=== PATIENT | male | born 1950 | race Caucasian/White ===

== ENCOUNTER 2016-07-14 22:40 | Emergency (ER) | payer MEDICARE, OTHER ==
[2016-07-14] MEDS ORDERED: HYDROmorphone 2 MG/ML Syringe IM ONE (23:56)
[2016-07-14] MEDS ORDERED: methylPREDNISolone Sodium Succinate 125 MG/2 ML SDV IM ONE (23:56)
--- NOTE | 2016-07-15 00:02 | EDM.PDOC ---
ED HPI GENERAL MEDICAL PROBLEM - General Chief Complaint: Back Pain or Injury Stated Complaint: BACK PAIN Time Seen by Provider: 07/14/16 23:53 - History of Present Illness INITIAL COMMENTS - FREE TEXT/NARRATIVE: HISTORY AND PHYSICAL: History of present illness: The patient is a 66 y/o male with a history of multiple back surgeries who has had recurrence of his lumbar back pain and has been followed by his back surgeons in [place]. As a result of the return of the pain he has been flying there to get steroid injections due to a bulging disc diagnosed on MRI at [facility]. According to the patient he always has lower back pain which radiates to bilateral legs to the level of the knee but he has no bowel or bladder disturbances and no neurosensory changes or weakness of the legs. He denies any recent trauma or new activities that could have aggravated it. He says this been ongoing for the last few weeks and his last steroid injection was 8 days ago and he is scheduled for another one in 2 days in [place]. He currently takes diclofenac Neurontin and [place] 10/325 for pain and that is not been working as it has intensified over the last 3 days. He has not had any oral steroids. The patient states there is nothing new or different about his pain and that is exactly as he always gets it and he has no new bowel or bladder issues. He says he has no neurologic changes and he is really only here to help manage the pain better until he can get to [place] on Saturday. He has no systemic complaints of fever chills chest pain shortness of breath abdominal pain. Review of systems: As per history of present illness and below otherwise all systems reviewed and negative. Past medical history: As per history of present illness and as reviewed below otherwise noncontributory. Surgical history: As per history of present illness and as reviewed below otherwise noncontributory. Social history: No reported history of drug or alcohol abuse. Family history: As per history of present illness and as reviewed below otherwise noncontributory. Physical exam: General: Well-developed well-nourished overweight male who is nontoxic and ambulated into the ED without assistance. Vital signs of a noted by me. HEENT: Atraumatic, normocephalic,, negative for conjunctival pallor or scleral icterus, mucous membranes moist, throat clear, neck supple, nontender, trachea midline. Lungs: Clear to auscultation, breath sounds equal bilaterally, chest nontender. Heart: S1S2, regular, negative for clicks, rubs, or JVD. Abdomen: Soft, nondistended, nontender. NABS Pelvis: Stable nontender. Genitourinary: Deferred. Rectal: Deferred. Extremities: Atraumatic, full range of motion without defects or deficits negative for cords or calf pain. Neurovascular unremarkable. Neuro: Awake, alert, oriented. Cranial nerves II through XII unremarkable. Cerebellum unremarkable. Motor and sensory unremarkable throughout. Exam nonfocal. Dorsi and plantar flexion is intact bilaterally 5/5 inclusive of the great toe and in inversion and eversion of the feet is intact. Patient has good strength throughout the lower extremities and patellar reflexes are +2 bilaterally Back: There are multiple old scars seen there are no bony defects in the midline no soft tissue injuries and no reproducible pain on palpation Diagnostics: [] Therapeutics: Solu-Medrol Dilaudid I told the patient that I would be very limited here and that he did not need to get a repeat MRI emergently and he agrees. We will give him Dilaudid and Solu -Medrol IM and I'll send him home with Percocet and prednisone to try on Saturday. He is comfortable with this care plan and is aware of my concerns and reasons to return and states acceptance of them. Impression: Lumbar back/disc pain history of same acute on chronic Definitive disposition and diagnosis as appropriate pending reevaluation and review of above. bilateral lower back Pain Score (Numeric/FACES): 10 - Related Data Allergies Allergy/AdvReac Type Severity Reaction Status Date / Time No Known Allergies Allergy Verified 07/14/16 23:01 Home Meds: Home Meds DULoxetine [Cymbalta] 1 tab PO DAILY 11/09/13 [History] Metoprolol Succinate 0.5 tab PO BEDTIME 11/09/13 [History] Multivitamin [Multi-Vitamin Daily] 1 tab PO DAILY 11/09/13 [History] Omeprazole [Prilosec] 2 tab PO BRK 11/09/13 [History] Simvastatin [Zocor] 40 mg PO BEDTIME 11/09/13 [History] Triamterene/Hydrochlorothiazid [Triamterene-HCTZ 37.5-25 MG] 1 tab PO DAILY 08/ 11/14 [History] Aspirin 81 mg PO DAILY 09/30/14 [History] Diclofenac Potassium [Zipsor] 50 mg PO BID 05/17/16 [History] Flunisolide [Aerospan] 2 spray NASBOTH DAILY 05/17/16 [History] Gabapentin [Neurontin] 1,600 mg PO ASDIRECTED 05/17/16 [History] Hydrocodone/Acetaminophen [Hydrocodon-Acetaminophn 10-325] 1 tab PO DAILY PRN [History] Past Medical History HEENT History: Reports: Hard of hearing Other HEENT History: wears glasses, keith hearing aids Cardiovascular History: Reports: High cholesterol, Hypertension Respiratory History: Reports: Sleep apnea Other Respiratory History: uses CPAP Gastrointestinal History: Reports: GERD Musculoskeletal History: Reports: Back pain, chronic, Osteoarthritis Psychiatric History: Reports: Depression Endocrine/Metabolic History: Reports: Hypothyroidism, Obesity/BMI 30+ Hematologic History: Reports: Blood transfusion(s) Other Hematologic History: states had blood transfusion with one of his back surgeries - Infectious Disease History Infectious Disease History: Reports: Chicken pox, Measles, MRSA, Mumps - Past Surgical History Head Surgeries/Procedures: Reports: None GI Surgical History: Reports: Colonoscopy Neurological Surgical History: Reports: Lumbar spine Other Neurological Surgeries/Procedures: back surgery x3, total of 8 back surgeries Musculoskeletal Surgical History: Reports: Hip replacement, Knee replacement, Shoulder replacement, Shoulder surgery Other Musculoskeletal Surgeries/Procedures:: hx of keith knee replacement and hip replacement with revision, foot surgery Social & Family History - Family History Family Medical History: Noncontributory - Tobacco Use Smoking Status *Q: Former Smoker Years of Tobacco use: 7 Used Tobacco, but Quit: Yes Month Tobacco Last Used: 20years - Alcohol Use Days Per Week of Alcohol Use: 0 Number of Drinks Per Day: 0 Total Drinks Per Week: 0 - Recreational Drug Use Recreational Drug Use: No Drug Use in Last 12 Months: No ED ROS GENERAL - Review of Systems Review Of Systems: ROS reveals no pertinent complaints other than HPI. ED EXAM, GENERAL - Physical Exam Exam: See Below (See dictation) Course - Vital Signs Last Recorded V/S: Last Vital Signs Temp 36.7 C 07/14/16 23:06 Pulse 68 07/14/16 23:06 Resp 18 07/14/16 23:06 BP 184/87 H 07/14/16 23:06 Pulse Ox 94 L 07/14/16 23:06 - Orders/Labs/Meds Orders: Active Orders 24 hr Category Date Time Status HYDROmorphone [Dilaudid] Med 07/14/16 23:56 Once 2 mg IM ONETIME ONE methylPREDNISolone Sod Succ [Solu-MEDROL] Med 07/14/16 23:56 Once 125 mg IM ONETIME ONE Medication Orders Hydromorphone HCl (Dilaudid) 2 mg IM ONETIME ONE Stop: 07/14/16 23:57 Methylprednisolone Sodium Succinate (Solu-Medrol) 125 mg IM ONETIME ONE Stop: 07/14/16 23:57 Meds: Medications Generic Name Dose Route Start Last Admin Trade Name Freq PRN Reason Stop Dose Admin Hydromorphone HCl 2 mg 07/14/16 23:56 Dilaudid IM 07/14/16 23:57 ONETIME ONE Methylprednisolone Sodium Succinate 125 mg 07/14/16 23:56 Solu-Medrol IM 07/14/16 23:57 ONETIME ONE Departure - Departure Time of Disposition: 00:01 Disposition: Home, Self-Care 01 Condition: good Clinical Impression: Disc herniation Qualifiers: Spinal region: lumbosacral Qualified Code(s): M51.27 - Other intervertebral disc displacement, lumbosacral region Lumbar back pain Qualifiers: Chronicity: chronic Back pain laterality: bilateral Sciatica presence: without sciatica Qualified Code(s): M54.5 - Low back pain; G89.29 - Other chronic pain Forms: ED Department Discharge Additional Instructions: The following information is given to patients seen in the emergency department who are being discharged to home. This information is to outline your options for follow-up care. We provide all patients seen in our emergency department with a follow-up referral. The need for follow-up, as well as the timing and circumstances, are variable depending upon the specifics of your emergency department visit. If you don't have a primary care physician on staff, we will provide you with a referral. We always advise you to contact your personal physician following an emergency department visit to inform them of the circumstance of the visit and for follow-up with them and/or the need for any referrals to a consulting specialist. The emergency department will also refer you to a specialist when appropriate. This referral assures that you have the opportunity for followup care with a specialist. All of these measure are taken in an effort to provide you with optimal care, which includes your followup. Under all circumstances we always encourage you to contact your private physician who remains a resource for coordinating your care. When calling for followup care, please make the office aware that this follow-up is from your recent emergency room visit. If for any reason you are refused follow-up, please contact the [facility] emergency department at and ask to speak to the emergency department charge nurse [facility] Primary care- [place] [address] Please use medications as prescribed from [facility]--Percocet and prednisone. Please keep your appointment with your back specialist on Saturday and return to ER as needed and as we discussed. Please also follow up with your primary care in the clinic when you're able. - My Orders Last 24 Hours: My Active Orders 07/14/16 23:56 HYDROmorphone [Dilaudid] 2 mg IM ONETIME ONE methylPREDNISolone Sod Succ [Solu-MEDROL] 125 mg IM ONETIME ONE - Assessment/Plan Last 24 Hours: My Active Orders 07/14/16 23:56 HYDROmorphone [Dilaudid] 2 mg IM ONETIME ONE methylPREDNISolone Sod Succ [Solu-MEDROL] 125 mg IM ONETIME ONE
[2016-07-15 00:39] VITALS: BP 165/86
== END 2016-07-15 00:15 | disposition home or self-care (01) ==
LOC: MW.ED 22:40
DX: M51.27 Other intervertebral disc displacement, lumbosacral region (principal); E78.00 Pure hypercholesterolemia, unspecified; I10 Essential (primary) hypertension; K21.9 Gastro-esophageal reflux disease without esophagitis; M19.90 Unspecified osteoarthritis, unspecified site; E03.9 Hypothyroidism, unspecified; E66.9 Obesity, unspecified; F32.9 Major depressive disorder, single episode, unspecified; Z79.82 Long term (current) use of aspirin; Z79.899 Other long term (current) drug therapy; Z87.891 Personal history of nicotine dependence
CPT/HCPCS: 96372; 99283; J1170; J2930; 99284

== ENCOUNTER 2016-07-24 09:08 | Emergency (ER) | payer MEDICARE, OTHER ==
[2016-07-24] MEDS ORDERED: Sodium Chloride 0.9% 1,000 ML IV ONE (10:01)
[2016-07-24] MEDS ORDERED: fentaNYL 100 MCG/2 ML SDV IVPUSH ONE (10:11)
--- NOTE | 2016-07-24 10:53 | EDM.PDOC ---
ED HPI GENERAL MEDICAL PROBLEM - General Chief Complaint: Back Pain or Injury Stated Complaint: BACK PAIN Time Seen by Provider: 07/24/16 09:51 - History of Present Illness INITIAL COMMENTS - FREE TEXT/NARRATIVE: HISTORY AND PHYSICAL: History of present illness: Patient is a 66-year-old white male history chronic back pain and concern of worsening low back pain with difficulty ambulating he also had urinary incontinence today he denies urinary retention he is brought by ambulance and received intramuscular narcotics and refers pain he is followed [id number] [place] and request transfer there if possible. Review of systems: As per history of present illness and below otherwise all systems reviewed and negative. Past medical history: As per history of present illness and as reviewed below otherwise noncontributory. Surgical history: As per history of present illness and as reviewed below otherwise noncontributory. Social history: No reported history of drug or alcohol abuse. Family history: As per history of present illness and as reviewed below otherwise noncontributory. Physical exam: HEENT: Atraumatic, normocephalic, pupils reactive, negative for conjunctival pallor or scleral icterus, mucous membranes moist, throat clear, neck supple, nontender, trachea midline. Lungs: Clear to auscultation, breath sounds equal bilaterally, chest nontender. Heart: S1S2, regular, negative for clicks, rubs, or JVD. Abdomen: Soft, nondistended, nontender. Negative for masses or hepatosplenomegaly. Negative for costovertebral tenderness. Pelvis: Stable nontender. Genitourinary: Deferred. Rectal: Normal tone normal sensation Extremities: Atraumatic, negative for cords or calf pain. Neurovascular unremarkable. Neuro: Awake, alert, oriented. Cranial nerves II through XII unremarkable. Cerebellum unremarkable. Motor and sensory unremarkable throughout. Exam nonfocal. Diagnostics: None Therapeutics: Saline lock fentanyl 100 mcg IV Impression: #1 chronic back pain with acute exacerbation #2 urinary incontinence etiology to be determined Definitive disposition and diagnosis as appropriate pending reevaluation and review of above. Lower Back Pain Score (Numeric/FACES): 7 - Related Data Allergies Allergy/AdvReac Type Severity Reaction Status Date / Time No Known Allergies Allergy Verified 07/14/16 23:01 Home Meds: Home Meds DULoxetine [Cymbalta] 60 mg PO DAILY 11/09/13 [History] Metoprolol Succinate 100 mg PO BEDTIME 11/09/13 [History] Multivitamin [Multi-Vitamin Daily] 1 tab PO DAILY 11/09/13 [History] Omeprazole [Prilosec] 40 mg PO BRK 11/09/13 [History] Simvastatin [Zocor] 20 mg PO BEDTIME 11/09/13 [History] Triamterene/Hydrochlorothiazid [Triamterene-HCTZ 37.5-25 MG] 0.5 tab PO DAILY [History] Aspirin 81 mg PO DAILY 09/30/14 [History] Diclofenac Potassium [Zipsor] 100 mg PO BID 05/17/16 [History] Flunisolide [Aerospan] 2 spray NASBOTH DAILY 05/17/16 [History] Gabapentin [Neurontin] 400 mg PO DAILY 05/17/16 [History] Hydrocodone/Acetaminophen [Hydrocodon-Acetaminophn 10-325] 1 tab PO Q6HR PRN [History] Past Medical History HEENT History: Reports: Hard of hearing Other HEENT History: wears glasses, keith hearing aids Cardiovascular History: Reports: High cholesterol, Hypertension Respiratory History: Reports: Sleep apnea Other Respiratory History: uses CPAP Gastrointestinal History: Reports: GERD Musculoskeletal History: Reports: Back pain, chronic, Osteoarthritis Psychiatric History: Reports: Depression Endocrine/Metabolic History: Reports: Hypothyroidism, Obesity/BMI 30+ Hematologic History: Reports: Blood transfusion(s) Other Hematologic History: states had blood transfusion with one of his back surgeries - Infectious Disease History Infectious Disease History: Reports: Chicken pox, Measles, MRSA, Mumps - Past Surgical History Head Surgeries/Procedures: Reports: None GI Surgical History: Reports: Colonoscopy Neurological Surgical History: Reports: Lumbar spine Other Neurological Surgeries/Procedures: back surgery x3, total of 8 back surgeries Musculoskeletal Surgical History: Reports: Hip replacement, Knee replacement, Shoulder replacement, Shoulder surgery Other Musculoskeletal Surgeries/Procedures:: hx of keith knee replacement and hip replacement with revision, foot surgery Social & Family History - Family History Family Medical History: Noncontributory - Tobacco Use Smoking Status *Q: Never Smoker Years of Tobacco use: 7 Used Tobacco, but Quit: Yes Month Tobacco Last Used: 20years Second Hand Smoke Exposure: No - Caffeine Use Caffeine Use: Reports: Coffee, Soda - Alcohol Use Days Per Week of Alcohol Use: 0 Number of Drinks Per Day: 0 Total Drinks Per Week: 0 - Recreational Drug Use Recreational Drug Use: No Drug Use in Last 12 Months: No ED ROS GENERAL - Review of Systems Review Of Systems: ROS reveals no pertinent complaints other than HPI. ED EXAM, GENERAL - Physical Exam Exam: See Below (The dictation) Course - Vital Signs Text/Narrative:: I discussed case with the family at length and concerns including ruling out cord compression they understand and agree they request transfer to [facility] in [place] where they have seen a spine surgeon prior I did discuss case with him and with ER physician was graciously agreed to accept the patient he will be flown by [place]. Last Recorded V/S: Last Vital Signs Temp 36.6 C 07/24/16 09:16 Pulse 72 07/24/16 10:02 Resp 24 H 07/24/16 10:02 BP 170/83 H 07/24/16 10:02 Pulse Ox 96 07/24/16 10:02 - Orders/Labs/Meds Orders: Active Orders 24 hr Category Date Time Status Sodium Chloride 0.9% [Normal Saline] 1,000 ml Med 07/24/16 10:01 Active IV .Bolus Medication Orders Sodium Chloride (Normal Saline) 1,000 mls @ 70 mls/hr IV .Bolus ONE Stop: 07/25/16 00:18 Last Admin: 07/24/16 10:02 Dose: 70 mls/hr Meds: Medications Generic Name Dose Route Start Last Admin Trade Name Freq PRN Reason Stop Dose Admin Sodium Chloride 1,000 mls @ 70 mls/hr 07/24/16 10:01 07/24/16 10:02 Normal Saline IV 07/25/16 00:18 70 mls/hr .Bolus ONE Administration Discontinued Medications Generic Name Dose Route Start Last Admin Trade Name Freq PRN Reason Stop Dose Admin Fentanyl 100 mcg 07/24/16 10:11 07/24/16 10:19 Sublimaze IVPUSH 07/24/16 10:12 100 mcg ONETIME ONE Administration Departure - Departure Time of Disposition: 10:48 Disposition: DC/Tfer to Acute Hospital 02 Condition: good Clinical Impression: Back pain, Urinary incontinence Forms: ED Department Discharge - My Orders Last 24 Hours: My Active Orders 07/24/16 10:01 Sodium Chloride 0.9% [Normal Saline] 1,000 ml IV .Bolus - Assessment/Plan Last 24 Hours: My Active Orders 07/24/16 10:01 Sodium Chloride 0.9% [Normal Saline] 1,000 ml IV .Bolus
[2016-07-24 10:58] VITALS: BP 150/73
== END 2016-07-24 11:25 ==
LOC: MW.ED 09:08
DX: M54.9 Dorsalgia, unspecified (principal); R32 Unspecified urinary incontinence; I10 Essential (primary) hypertension; E78.00 Pure hypercholesterolemia, unspecified; K21.9 Gastro-esophageal reflux disease without esophagitis; F32.9 Major depressive disorder, single episode, unspecified; E03.9 Hypothyroidism, unspecified; E66.9 Obesity, unspecified; Z68.41 Body mass index [BMI] 40.0-44.9, adult; Z96.659 Presence of unspecified artificial knee joint; Z96.649 Presence of unspecified artificial hip joint; Z96.619 Presence of unspecified artificial shoulder joint; Z98.890 Other specified postprocedural states; Z79.82 Long term (current) use of aspirin; Z79.899 Other long term (current) drug therapy
CPT/HCPCS: 96361; 96374; 99284; J3010; J7040; 99285

== ENCOUNTER 2016-09-23 10:42 | Inpatient (IN) | payer MEDICARE, OTHER ==
[2016-09-23] MEDS ORDERED: Sodium Chloride 0.9% 2.5 ML Syringe FLUSH PRN (10:50)
[2016-09-23] MEDS ORDERED: Sodium Chloride 0.9% 10 ML Syringe FLUSH PRN (10:50)
--- NOTE | 2016-09-23 10:57 | EDM.PDOC ---
ED HPI GENERAL MEDICAL PROBLEM - General Chief Complaint: Chest Pain Stated Complaint: SHORTNESS OF BREATH Time Seen by Provider: 09/23/16 10:45 Source of Information: Reports: Patient History Limitations: Reports: No Limitations - History of Present Illness INITIAL COMMENTS - FREE TEXT/NARRATIVE: HISTORY AND PHYSICAL: History of present illness: Patient comes to the emergency room via EMS. He complains of pain over his right anterior lower rib. Onset was 3 AM this morning waking him up out of his sleep. He took 1 tablet of OxyContin, the pain resolved and patient slept until 7 AM. He got up at 7 AM, got himself dressed and then developed worsening pain to his right lower chest and shortness of breath. Pain increases with taking a deep breath. He states that it feels like pleurisy which he's suffered from 30 years ago. He does not have difficulty taking a breath but it is painful when he takes a deep breath. Denies fever and chills. No pain anywhere else in his chest neck or shoulders. No radiation of pain from R rib area. No recent fever or chills. He is 6 weeks post L5-S1 fusion. He has overall been feeling well recently. No history of cholecystectomy[] Review of systems: As per history of present illness and below otherwise all systems reviewed and negative. Past medical history: As per history of present illness and as reviewed below otherwise noncontributory. Surgical history: As per history of present illness and as reviewed below otherwise noncontributory. Social history: No reported history of drug or alcohol abuse. Family history: As per history of present illness and as reviewed below otherwise noncontributory. Physical exam: Gen.: Well-developed well-nourished male appears in no acute distress. HEENT: Atraumatic, normocephalic Oral mucous membranes moist. neck supple, nontender. Trachea midline. Lungs: Clear to auscultation, breath sounds equal bilaterally, chest nontender. Nonlabored respirations. Heart: S1S2, regular rate and rhythm. Abdomen: Obese Soft, nondistended, nontender. No masses guarding or rebound. Pelvis: Stable nontender. Genitourinary: Deferred. Rectal: Deferred. Extremities: Atraumatic, negative for cords or calf pain. Neurovascular unremarkable. Neuro: Awake, alert, oriented. Cerebellum unremarkable. Motor and sensory unremarkable throughout. Exam nonfocal. Is pleasant and conversational. Diagnostics: [CBC, CMP, chest x-ray, EKG, troponin, amylase, lipase, d-dimer, abdominal ultrasound, CTA chest] Therapeutics: [Toradol 30 mg IV, aspirin 324 mg, Lovenox 130 mg subcutaneous] Impression: [Pulmonary emboli] Plan: [D-dimer is 4.41. CTA chest shows large PE in the right lung, small PE to left lower lung lobe. CTA and lab findings are reviewed with Dr. Leonel Walton who Agrees to accept patient for inpatient admission with telemetry. This is discussed with patient he is in agreement with today's plan. Definitive disposition and diagnosis as appropriate pending reevaluation and review of above. right rib Pain Score (Numeric/FACES): 7 - Related Data Allergies Allergy/AdvReac Type Severity Reaction Status Date / Time No Known Allergies Allergy Verified 09/23/16 10:59 Home Meds: Home Meds DULoxetine [Cymbalta] 60 mg PO DAILY 11/09/13 [History] Metoprolol Succinate 100 mg PO BEDTIME 11/09/13 [History] Multivitamin [Multi-Vitamin Daily] 1 tab PO DAILY 11/09/13 [History] Omeprazole [Prilosec] 40 mg PO BRK 11/09/13 [History] Simvastatin [Zocor] 20 mg PO BEDTIME 11/09/13 [History] Triamterene/Hydrochlorothiazid [Triamterene-HCTZ 37.5-25 MG] 0.5 tab PO DAILY [History] Aspirin 81 mg PO DAILY 09/30/14 [History] Flunisolide [Aerospan] 2 spray NASBOTH DAILY 05/17/16 [History] Gabapentin [Neurontin] 400 mg PO DAILY 05/17/16 [History] Hydrocodone/Acetaminophen [Hydrocodon-Acetaminophn 10-325] 1 tab PO Q6HR PRN [History] oxyCODONE 10 mg PO ONETIME 09/23/16 [History] Past Medical History HEENT History: Reports: Hard of Hearing Other HEENT History: wears glasses, keith hearing aids Cardiovascular History: Reports: High Cholesterol, Hypertension Respiratory History: Reports: Sleep Apnea Other Respiratory History: uses CPAP Gastrointestinal History: Reports: GERD Musculoskeletal History: Reports: Back Pain, Chronic, Osteoarthritis Psychiatric History: Reports: Depression Endocrine/Metabolic History: Reports: Hypothyroidism, Obesity/BMI 30+ Hematologic History: Reports: Blood Transfusion(s) Other Hematologic History: states had blood transfusion with one of his back surgeries - Infectious Disease History Infectious Disease History: Reports: Chicken Pox, Measles, MRSA, Mumps - Past Surgical History Neurological Surgical History: Reports: Lumbar Spine Musculoskeletal Surgical History: Reports: Hip Replacement, Knee Replacement, Shoulder Replacement, Shoulder Surgery Social & Family History - Family History Family Medical History: Noncontributory - Tobacco Use Smoking Status *Q: Never Smoker Years of Tobacco use: 7 Used Tobacco, but Quit: Yes Month Tobacco Last Used: 20years Second Hand Smoke Exposure: No - Caffeine Use Caffeine Use: Reports: Coffee, Soda - Alcohol Use Days Per Week of Alcohol Use: 0 Number of Drinks Per Day: 0 Total Drinks Per Week: 0 - Recreational Drug Use Recreational Drug Use: No Drug Use in Last 12 Months: No ED ROS GENERAL - Review of Systems Review Of Systems: ROS reveals no pertinent complaints other than HPI. ED EXAM, GENERAL - Physical Exam Exam: See Below Course - Vital Signs Text/Narrative:: Rates pain at 7 out of 10 upon presentation to the ER declines any medication for pain. 1120 patient states the pain is increasing, Toradol was ordered. Last Recorded V/S: Last Vital Signs Temp 97.5 F 09/23/16 10:59 Pulse 79 09/23/16 13:39 Resp 18 09/23/16 12:25 BP 120/59 L 09/23/16 13:39 Pulse Ox 97 09/23/16 13:39 - Orders/Labs/Meds Orders: Active Orders 24 hr Category Date Time Status Patient Status [ADT] Stat ADT 09/23/16 13:50 Active EKG Documentation Completion [RC] STAT Care 09/23/16 10:50 Active Abdomen Ltd [US] Stat Exams 09/23/16 10:59 Taken CTA Chest W WO Contrast [Ang Chest] [CT] Stat Exams 09/23/16 12:22 Taken Chest 2V [CR] Stat Exams 09/23/16 10:51 Taken Sodium Chloride 0.9% [Saline Flush] Med 09/23/16 10:50 Active 10 ml FLUSH ASDIRECTED PRN Sodium Chloride 0.9% [Saline Flush] Med 09/23/16 10:50 Active 2.5 ml FLUSH ASDIRECTED PRN Saline Lock Insert [OM.PC] Stat Oth 09/23/16 10:50 Ordered Medication Orders Sodium Chloride (Saline Flush) 10 ml FLUSH ASDIRECTED PRN PRN Reason: Keep Vein Open Last Admin: 09/23/16 11:24 Dose: 10 ml Sodium Chloride (Saline Flush) 2.5 ml FLUSH ASDIRECTED PRN PRN Reason: Keep Vein Open Last Admin: 09/23/16 11:25 Dose: 2.5 ml Labs: Laboratory Tests 09/23/16 09/23/16 09/23/16 Range/Units 10:55 10:55 10:55 WBC 10.62 (4.0-11.0) K/uL RBC 4.22 L (4.50-5.90) M/uL Hgb 11.8 L (13.0-17.0) g/dL Hct 36.9 L (38.0-50.0) % MCV 87.4 (80.0-98.0) fL MCH 28.0 (27.0-32.0) pg MCHC 32.0 (31.0-37.0) g/dL RDW Std Deviation 46.7 (28.0-62.0) fl RDW Coeff of Nancy 15 (11.0-15.0) % Plt Count 273 (150-400) K/uL MPV 8.80 (7.40-12.00) fL Neut % (Auto) 60.0 (48.0-80.0) % Lymph % (Auto) 23.2 (16.0-40.0) % [place] % (Auto) 13.2 (0.0-15.0) % Eos % (Auto) 3.0 (0.0-7.0) % Baso % (Auto) 0.6 (0.0-1.5) % Neut # (Auto) 6.4 H (1.4-5.7) K/uL Lymph # (Auto) 2.5 H (0.6-2.4) K/uL [place] # (Auto) 1.4 H (0.0-0.8) K/uL Eos # (Auto) 0.3 (0.0-0.7) K/uL Baso # (Auto) 0.1 (0.0-0.1) K/uL Nucleated RBC % 0.0 /100WBC Nucleated RBCs # 0 K/uL INR (0.86-1.11) D-Dimer, Quantitative (0.0-0.52) mg/LFEU Sodium 139 (136-146) mmol/L Potassium 3.9 (3.5-5.1) mmol/L Chloride 107 (98-110) mmol/L Carbon Dioxide 21 (21-31) mmol/L BUN 15 (6.0-23.0) mg/dL Creatinine 1.0 (0.6-1.5) mg/dL Est Cr Clr Drug Dosing 72.66 mL/min Estimated GFR (MDRD) > 60.0 ml/min Glucose 148 H (60-110) mg/dL Calcium 8.9 (8.8-10.8) mg/dL Total Bilirubin 0.6 (0.1-1.5) mg/dL AST 15 (5-40) IU/L ALT 16 (8-54) IU/L Alkaline Phosphatase 115 (40-150) Troponin I < 0.10 (0.0-0.29) NG/ML Total Protein 7.6 (6.0-8.0) g/dL Albumin 3.5 (3.4-4.8) g/dL Globulin 4.1 H (2.0-3.5) g/dL Albumin/Globulin Ratio 0.9 L (1.3-2.8) Amylase 47 (10-90) U/L Lipase 17 (7-80) U/L 09/23/16 09/23/16 Range/Units 10:55 10:55 WBC (4.0-11.0) K/uL RBC (4.50-5.90) M/uL Hgb (13.0-17.0) g/dL Hct (38.0-50.0) % MCV (80.0-98.0) fL MCH (27.0-32.0) pg MCHC (31.0-37.0) g/dL RDW Std Deviation (28.0-62.0) fl RDW Coeff of Nancy (11.0-15.0) % Plt Count (150-400) K/uL MPV (7.40-12.00) fL Neut % (Auto) (48.0-80.0) % Lymph % (Auto) (16.0-40.0) % [place] % (Auto) (0.0-15.0) % Eos % (Auto) (0.0-7.0) % Baso % (Auto) (0.0-1.5) % Neut # (Auto) (1.4-5.7) K/uL Lymph # (Auto) (0.6-2.4) K/uL [place] # (Auto) (0.0-0.8) K/uL Eos # (Auto) (0.0-0.7) K/uL Baso # (Auto) (0.0-0.1) K/uL Nucleated RBC % /100WBC Nucleated RBCs # K/uL INR 1.02 (0.86-1.11) D-Dimer, Quantitative 4.41 H (0.0-0.52) mg/LFEU Sodium (136-146) mmol/L Potassium (3.5-5.1) mmol/L Chloride (98-110) mmol/L Carbon Dioxide (21-31) mmol/L BUN (6.0-23.0) mg/dL Creatinine (0.6-1.5) mg/dL Est Cr Clr Drug Dosing mL/min Estimated GFR (MDRD) ml/min Glucose (60-110) mg/dL Calcium (8.8-10.8) mg/dL Total Bilirubin (0.1-1.5) mg/dL AST (5-40) IU/L ALT (8-54) IU/L Alkaline Phosphatase (40-150) Troponin I (0.0-0.29) NG/ML Total Protein (6.0-8.0) g/dL Albumin (3.4-4.8) g/dL Globulin (2.0-3.5) g/dL Albumin/Globulin Ratio (1.3-2.8) Amylase (10-90) U/L Lipase (7-80) U/L Meds: Medications Generic Name Dose Route Start Last Admin Trade Name Freq PRN Reason Stop Dose Admin Sodium Chloride 10 ml 09/23/16 10:50 09/23/16 11:24 Saline Flush FLUSH 10 ml ASDIRECTED PRN Administration Keep Vein Open Sodium Chloride 2.5 ml 09/23/16 10:50 09/23/16 11:25 Saline Flush FLUSH 2.5 ml ASDIRECTED PRN Administration Keep Vein Open Discontinued Medications Generic Name Dose Route Start Last Admin Trade Name Teresa PRN Reason Stop Dose Admin Aspirin 324 mg 09/23/16 11:00 09/23/16 11:23 Aspirin PO 09/23/16 11:01 324 mg ONETIME ONE Administration Enoxaparin Sodium 130 mg 09/23/16 13:49 09/23/16 14:11 Lovenox SUBCUT 09/23/16 13:50 Not Given ONETIME ONE Enoxaparin Sodium 30 mg 09/23/16 14:00 09/23/16 14:10 Lovenox SUBCUT 09/23/16 14:01 30 mg ONETIME ONE Administration Enoxaparin Sodium 100 mg 09/23/16 14:00 09/23/16 14:10 Lovenox SUBCUT 09/23/16 14:01 100 mg ONETIME ONE Administration Hydromorphone HCl 1 mg 09/23/16 11:20 09/23/16 13:42 Dilaudid IV 09/23/16 11:21 Not Given ONETIME ONE Ketorolac Tromethamine 30 mg 09/23/16 11:00 09/23/16 11:23 Toradol IVPUSH 09/23/16 11:01 30 mg ONETIME ONE Administration Departure - Departure Time of Disposition: 15:00 Disposition: Admitted As Inpatient 66 Condition: Good Clinical Impression: Pulmonary emboli Qualifiers: Pulmonary embolism type: other Chronicity: acute - My Orders Last 24 Hours: My Active Orders 09/23/16 10:50 EKG Documentation Completion [RC] STAT Sodium Chloride 0.9% [Saline Flush] 10 ml FLUSH ASDIRECTED PRN Sodium Chloride 0.9% [Saline Flush] 2.5 ml FLUSH ASDIRECTED PRN Saline Lock Insert [OM.PC] Stat 09/23/16 10:51 Chest 2V [CR] Stat 09/23/16 12:22 CTA Chest W WO Contrast [Ang Chest] [CT] Stat 09/23/16 13:50 Patient Status [ADT] Stat - Assessment/Plan Last 24 Hours: My Active Orders 09/23/16 10:50 EKG Documentation Completion [RC] STAT Sodium Chloride 0.9% [Saline Flush] 10 ml FLUSH ASDIRECTED PRN Sodium Chloride 0.9% [Saline Flush] 2.5 ml FLUSH ASDIRECTED PRN Saline Lock Insert [OM.PC] Stat 09/23/16 10:51 Chest 2V [CR] Stat 09/23/16 12:22 CTA Chest W WO Contrast [Ang Chest] [CT] Stat 09/23/16 13:50 Patient Status [ADT] Stat
[2016-09-23] MEDS ORDERED: Aspirin 81 MG Tab.Chew PO ONE (11:00)
[2016-09-23] MEDS ORDERED: Ketorolac 30 MG/ML SDV IVPUSH ONE (11:00)
[2016-09-23] MEDS ORDERED: HYDROmorphone 1 MG/ML Syringe IV ONE (11:20)
[2016-09-23 11:27] LABS: CHLORIDE,CL 107 mmol/L (98-110); SODIUM,NA 139 mmol/L (136-146)
[2016-09-23] MEDS ORDERED: Enoxaparin 150 MG/1 ML Syringe SUBCUT ONE (13:49)
[2016-09-23] MEDS ORDERED: Enoxaparin 30 MG/0.3 ML Syringe SUBCUT ONE (14:00)
[2016-09-23] MEDS ORDERED: Enoxaparin 100 MG/1 ML Syringe SUBCUT ONE (14:00)
--- NOTE | 2016-09-23 17:22 | PCM.HP ---
H&P History of Present Illness - General Date of Service: 09/23/16 Admit Problem/Dx: Admission Diagnosis/Problem Admission Diagnosis/Problem Pulmonary embolism - History of Present Illness Initial Comments - Free Text/Narative: He noted sudden onset of dyspnea and right lateral chest pain this am. He presented to the ED and was diagnosed by CTa with bilateral pulmonary emboli. He underwent lumbar spine decompression surgery about six weeks ago.He states that the leg pain he had prior to the surgery is completely resolved. right rib Pain Score (Numeric/FACES): 2 - Related Data Allergies/Adverse Reactions: Allergies Allergy/AdvReac Type Severity Reaction Status Date / Time No Known Allergies Allergy Verified 09/23/16 10:59 Home Medications: Home Meds DULoxetine [Cymbalta] 60 mg PO DAILY 11/09/13 [History] Metoprolol Succinate 100 mg PO BEDTIME 11/09/13 [History] Multivitamin [Multi-Vitamin Daily] 1 tab PO DAILY 11/09/13 [History] Omeprazole [Prilosec] 40 mg PO BRK 11/09/13 [History] Simvastatin [Zocor] 20 mg PO BEDTIME 11/09/13 [History] Triamterene/Hydrochlorothiazid [Triamterene-HCTZ 37.5-25 MG] 0.5 tab PO DAILY [History] Aspirin 81 mg PO DAILY 09/30/14 [History] Flunisolide [Aerospan] 2 spray NASBOTH DAILY 05/17/16 [History] Gabapentin [Neurontin] 400 mg PO DAILY 05/17/16 [History] Hydrocodone/Acetaminophen [Hydrocodon-Acetaminophn 10-325] 1 tab PO Q6HR PRN [History] oxyCODONE 10 mg PO ONETIME 09/23/16 [History] Past Medical History HEENT History: Reports: Hard of Hearing Other HEENT History: wears glasses, keith hearing aids Cardiovascular History: Reports: High Cholesterol, Hypertension. Denies: Afib, Bypass, CAD, Cardiomyopathy, Heart Failure, Heart Valve Replacement, NM, Pulmonary Hypertension Respiratory History: Reports: PE, Sleep Apnea. Denies: COPD Other Respiratory History: uses CPAP Gastrointestinal History: Reports: GERD Musculoskeletal History: Reports: Back Pain, Chronic, Osteoarthritis Neurological History: Reports: Neuropathy, Peripheral. Denies: CVA Other Neuro History: bilateral pads of feet Psychiatric History: Reports: Depression Endocrine/Metabolic History: Reports: Hypothyroidism, Obesity/BMI 30+. Denies: Diabetes, Type I, Diabetes, Type II Hematologic History: Reports: Blood Transfusion(s) Other Hematologic History: states had blood transfusion with one of his back surgeries Oncologic (Cancer) History: Reports: None - Infectious Disease History Infectious Disease History: Reports: Chicken Pox, Measles, Mumps Other Infectious Disease History: pateint questions MRSA history, disagrees that itis on his chart - Past Surgical History Head Surgeries/Procedures: Reports: None Neurological Surgical History: Reports: Lumbar Spine Musculoskeletal Surgical History: Reports: Hip Replacement, Knee Replacement, Shoulder Replacement, Shoulder Surgery, Other (See Below) Other Musculoskeletal Surgeries/Procedures:: bilateral knees, right shoulder, and recent lumbar fusion Social & Family History - Family History Family Medical History: Noncontributory Oncologic: Reports: Breast, Leukemia, Lung, Other (See Below) Other Oncologic Family History: maternal breast CA, paternal lung CA - Tobacco Use Smoking Status *Q: Former Smoker Years of Tobacco use: 7 Used Tobacco, but Quit: Yes Month Tobacco Last Used: winter in 1972 Second Hand Smoke Exposure: No - Caffeine Use Caffeine Use: Reports: Coffee, Tea - Alcohol Use Days Per Week of Alcohol Use: 0 Number of Drinks Per Day: 0 Total Drinks Per Week: 0 - Recreational Drug Use Recreational Drug Use: No Drug Use in Last 12 Months: No H&P Review of Systems - Review of Systems: Review Of Systems: See Below General: Denies: Fever, Chills, Malaise, Weakness HEENT: Denies: Headaches Pulmonary: Reports: Shortness of Breath. Denies: Wheezing, Cough, Sputum, Hemoptysis Cardiovascular: Reports: Chest Pain (as per HPI) Gastrointestinal: Denies: Abdominal Pain, Anorexia, Black Stool, Bloody Stool, Hematemesis, Hematochezia, Melena, Vomiting Genitourinary: Denies: Dysuria, Burning Skin: Denies: Cyanosis Psychiatric: Denies: Confusion Exam - Exam Exam: See Below - Vital Signs Vital Signs: Last Vital Signs Temp 97.5 F 09/23/16 10:59 Pulse 79 09/23/16 13:39 Resp 18 09/23/16 12:25 BP 120/59 L 09/23/16 13:39 Pulse Ox 97 09/23/16 13:39 Weight: 129 kg - Exam General: Alert, Oriented, Cooperative HEENT: EOMI Neck: Supple, Trachea Midline Lungs: Clear to Auscultation, Normal Respiratory Effort Cardiovascular: Regular Rate, Regular Rhythm Abdomen: Soft. No: Distention, Rebound, Tenderness (Male) Exam: Deferred Rectal (Males) Exam: Deferred Extremities: No: Calf Tenderness, Edema Neurological: Cranial Nerves Intact, Normal Speech Neuro Extensive - Mental Status: Normal Mood/Affect Neuro Extensive - Motor, Sensory, Reflexes: No: Facial palsy (L), Facial Palsy ( R), Hemeplagia (R), Hemeplagia (L) Psychiatric: Alert, Normal Affect. No: Depressed, Agitated, Hallucinations - Patient Data Result Diagrams: 09/23/16 10:55 09/23/16 10:55 *Q Meaningful Use (ADM) - VTE *Q VTE Criteria *Q: - Stroke *Q Stroke Criteria *Q: - AMI *Q AMI Criteria *Q: - Problem List (1) Pulmonary emboli SNOMED Code(s): 19919904, 40360332 ICD Code: I26.99 - OTHER PULMONARY EMBOLISM WITHOUT ACUTE COR PULMONALE Status: Acute Current Visit: Yes Qualifiers: Pulmonary embolism type: other Chronicity: acute Problem List Initiated/Reviewed/Updated: Yes Orders Last 24hrs: Medication Orders Sodium Chloride (Saline Flush) 10 ml FLUSH ASDIRECTED PRN PRN Reason: Keep Vein Open Last Admin: 09/23/16 11:24 Dose: 10 ml Sodium Chloride (Saline Flush) 2.5 ml FLUSH ASDIRECTED PRN PRN Reason: Keep Vein Open Last Admin: 09/23/16 11:25 Dose: 2.5 ml Assessment/Plan Comment:: admit telemetry lovenox anticipated discharge on Saturday Leonel Walton MD
[2016-09-23] MEDS: Omeprazole 20 MG Cap.CR PO SCH (19:25)
[2016-09-23] MEDS: Acetaminophen 325 MG Tab PO PRN (19:31)
[2016-09-23] MEDS: Metoprolol Succinate 100 MG Tab.ER PO SCH (20:38)
[2016-09-23] MEDS: Simvastatin 40 MG Tab PO SCH (20:39)
[2016-09-23] MEDS: Temazepam 15 MG Cap PO PRN (22:02)
[2016-09-23] MEDS: Gabapentin 800 MG Tab PO SCH (22:02)
[2016-09-23] MEDS: oxyCODONE 5 MG Tab PO PRN (23:11)
[2016-09-24 07:03] LABS: CHLORIDE,CL 103 mmol/L (98-110); SODIUM,NA 137 mmol/L (136-146)
[2016-09-24] MEDS: Omeprazole 20 MG Cap.CR PO SCH (08:03)
[2016-09-24] MEDS: oxyCODONE 5 MG Tab PO PRN ×3 (08:04→21:42)
[2016-09-24] MEDS: DULoxetine 60 MG Cap PO SCH (08:05)
[2016-09-24] MEDS: Hydrochlorothiazide/Triamterene 25-37.5 Tab PO SCH (08:05)
[2016-09-24] MEDS: Gabapentin 800 MG Tab PO SCH ×2 (08:05→20:20)
[2016-09-24] MEDS: Multivitamin Tab PO SCH (08:05)
[2016-09-24] MEDS ORDERED: Gabapentin 800 MG Tab PO SCH (09:00)
[2016-09-24] MEDS ORDERED: FLUNISOLIDE NASBOTH SCH (09:00)
--- NOTE | 2016-09-24 10:14 | PCM.PN ---
- General Info Date of Service: 09/24/16 Admission Dx/Problem (Free Text): Admission Diagnosis/Problem Admission Diagnosis/Problem Pulmonary embolism Subjective Update: Still having some right sided chest pain, tolerating diet, up and ambulating. No hemoptsis. No palpitations. No radiation of chest pain. Slept well. Functional Status: Reports: pain controlled, tolerating diet, ambulating - Review of Systems General: Denies: Fever, Weakness, Fatigue HEENT: Denies: headaches, sore throat Pulmonary: Denies: shortness of breath, cough, sputum, wheezing Cardiovascular: Denies: Chest Pain, Palpitations, Edema Gastrointestinal: Denies: Abdominal pain, Nausea, Vomiting Genitourinary: Denies: dysuria Musculoskeletal: Denies: neck pain, leg pain Skin: Denies: cyanosis Neurological: Denies: Confusion, Dizziness Psychiatric: Denies: confusion - Patient Data Vitals - most recent: Last Vital Signs Temp 37.2 C 09/24/16 09:46 Pulse 98 09/24/16 08:00 Resp 20 09/24/16 08:00 BP 117/56 L 09/24/16 08:00 Pulse Ox 95 09/24/16 08:00 Weight - most recent: 129 kg I&O - last 24 hours: Intake & Output 09/23/16 09/24/16 09/24/16 22:59 06:59 14:59 Intake Total 400 Balance 400 Lab Results last 24 hrs: Laboratory Results - last 24 hr 09/24/16 09/24/16 Range/Units 06:15 06:15 WBC 10.98 (4.0-11.0) K/uL RBC 3.97 L (4.50-5.90) M/uL Hgb 11.2 L (13.0-17.0) g/dL Hct 34.9 L (38.0-50.0) % MCV 87.9 (80.0-98.0) fL MCH 28.2 (27.0-32.0) pg MCHC 32.1 (31.0-37.0) g/dL RDW Std Deviation 46.7 (28.0-62.0) fl RDW Coeff of Nancy 15 (11.0-15.0) % Plt Count 285 (150-400) K/uL MPV 9.10 (7.40-12.00) fL Add Manual Diff YES Neutrophils % (Manual) 68 (48.0-80.0) % Band Neutrophils % 2 % Lymphocytes % (Manual) 22 (16.0-40.0) % Monocytes % (Manual) 4 (0.0-15.0) % Eosinophils % (Manual) 3 (0.0-7.0) % Basophils % (Manual) 1 (0.0-1.5) % Nucleated RBC % 0.0 /100WBC Absolute Seg Neuts 7.5 Band Neutrophils # 0.2 Lymphocytes # (Manual) 2.4 Monocytes # (Manual) 0.4 Eosinophils # (Manual) 0.3 Basophils # (Manual) 0 Nucleated RBCs # 0 K/uL Sodium 137 (136-146) mmol/L Potassium 3.8 (3.5-5.1) mmol/L Chloride 103 (98-110) mmol/L Carbon Dioxide 21 (21-31) mmol/L BUN 16 (6.0-23.0) mg/dL Creatinine 0.9 (0.6-1.5) mg/dL Est Cr Clr Drug Dosing 80.74 mL/min Estimated GFR (MDRD) > 60.0 ml/min Glucose 96 (60-110) mg/dL Calcium 9.1 (8.8-10.8) mg/dL Med Orders - Current: Current Medications Acetaminophen (Tylenol) 650 mg PO Q4H PRN PRN Reason: Pain (Mild 1-3)/fever Last Admin: 09/23/16 19:31 Dose: 650 mg Duloxetine HCl (Cymbalta) 60 mg PO DAILY [facility] Last Admin: 09/24/16 08:05 Dose: 60 mg Enoxaparin Sodium (Lovenox) 130 mg SUBCUT Q12H [facility] Gabapentin (Neurontin) 800 mg PO BID [facility] Last Admin: 09/24/16 08:05 Dose: 800 mg Metoprolol Succinate (Toprol Xl) 100 mg PO BEDTIME [facility] Last Admin: 09/23/16 20:38 Dose: 100 mg Multivitamins/Minerals/Vitamin C (Tab-A-Stephania) 1 tab PO DAILY [facility] Last Admin: 09/24/16 08:05 Dose: 1 tab Omeprazole (Omeprazole) 40 mg PO BRK [facility] Last Admin: 09/24/16 08:03 Dose: 40 mg Oxycodone HCl (Oxycodone) 10 mg PO Q4H PRN PRN Reason: Pain (moderate 4-6) Last Admin: 09/24/16 08:04 Dose: 10 mg Simvastatin (Zocor) 20 mg PO BEDTIME [facility] Last Admin: 09/23/16 20:39 Dose: 20 mg Sodium Chloride (Saline Flush) 10 ml FLUSH ASDIRECTED PRN PRN Reason: Keep Vein Open Last Admin: 09/23/16 11:24 Dose: 10 ml Sodium Chloride (Saline Flush) 2.5 ml FLUSH ASDIRECTED PRN PRN Reason: Keep Vein Open Last Admin: 09/23/16 11:25 Dose: 2.5 ml Temazepam (Restoril) 15 mg PO BEDTIME PRN PRN Reason: Sleep Last Admin: 09/23/16 22:02 Dose: 15 mg Triamterene/HCTZ (Maxzide 25-37.5 Mg) 0.5 each PO DAILY [facility] Last Admin: 09/24/16 08:05 Dose: 0.5 each Discontinued Medications Aspirin (Aspirin) 324 mg PO ONETIME ONE Stop: 09/23/16 11:01 Last Admin: 09/23/16 11:23 Dose: 324 mg Enoxaparin Sodium (Lovenox) 130 mg SUBCUT ONETIME ONE Stop: 09/23/16 13:50 Last Admin: 09/23/16 14:11 Dose: Not Given Enoxaparin Sodium (Lovenox) 30 mg SUBCUT ONETIME ONE Stop: 09/23/16 14:01 Last Admin: 09/23/16 14:10 Dose: 30 mg Enoxaparin Sodium (Lovenox) 100 mg SUBCUT ONETIME ONE Stop: 09/23/16 14:01 Last Admin: 09/23/16 14:10 Dose: 100 mg Gabapentin (Neurontin) 400 mg PO DAILY [facility] Hydromorphone HCl (Dilaudid) 1 mg IV ONETIME ONE Stop: 09/23/16 11:21 Last Admin: 09/23/16 13:42 Dose: Not Given Ketorolac Tromethamine (Toradol) 30 mg IVPUSH ONETIME ONE Stop: 09/23/16 11:01 Last Admin: 09/23/16 11:23 Dose: 30 mg Non-Formulary Medication (Flunisolide [Aerospan]) 2 spray NASBOTH DAILY [facility] - Exam Quality Assessment: No: DVT prophylaxis General: alert, oriented, cooperative HEENT: Pupils equal, Pupils reactive, EOMI, Mucous membr. moist/pink Neck: supple Lungs: Clear to auscultation, Normal respiratory effort Cardiovascular: Regular Rate, Regular Rhythm Abdomen: bowel sounds present, soft, no tenderness, no distension Back Exam: Normal Inspection Extremities: no edema, normal pulses, no tenderness/swelling Peripheral Pulses: 2+: Radial (L), Radial (R), Posterior Tibial (L), Posterior Tibial (R), Dorsalis Pedis (L), Dorsalis Pedis (R) Skin: warm, dry, intact Neurological: no new focal deficit Psy/Mental Status: alert, normal affect, normal mood - Problem List & Annotations (1) Pulmonary emboli SNOMED Code(s): 38996967, 04697122 Code(s): I26.99 - OTHER PULMONARY EMBOLISM WITHOUT ACUTE COR PULMONALE Status: Acute Priority: High Current Visit: Yes Qualifiers: Pulmonary embolism type: other Chronicity: acute Acute cor pulmonale presence: without acute cor pulmonale Qualified Code(s): I26.99 - Other pulmonary embolism without acute cor pulmonale (2) Hypertension SNOMED Code(s): 33746175 Code(s): I10 - ESSENTIAL (PRIMARY) HYPERTENSION Status: Chronic Priority : Medium Current Visit: Yes Qualifiers: Hypertension type: essential hypertension Qualified Code(s): I10 - Essential (primary) hypertension (3) GERD (gastroesophageal reflux disease) SNOMED Code(s): 406257165 Code(s): K21.9 - GASTRO-ESOPHAGEAL REFLUX DISEASE WITHOUT ESOPHAGITIS Status: Chronic Priority: Medium Current Visit: Yes Qualifiers: Esophagitis presence: esophagitis presence not specified Qualified Code(s) : K21.9 - Gastro-esophageal reflux disease without esophagitis - Problem List Review Problem List Initiated/Reviewed/Updated: Yes - Plan Plan:: 66 M with bilateral PE, htn, and GERD. Bilateral PE: Still having right sided chest pain. No history of previous PE and recent surgery. Will switch form lovenox to Xarelto 15 mg PO BID for 21 days then 20 mg daily. Will need anticoag for 3-6 months. Will follow-up with [place] PCP after discharge. Htn: Cont. home meds. GERD: Cont. home meds. Dispo: Tomorrow pending.
[2016-09-24] MEDS: Rivaroxaban 15 MG Tab PO SCH ×2 (10:58→20:21)
--- NOTE | 2016-09-24 12:16 | CR ---
EXAM DATE: 09/23/16 PATIENT'S AGE: 66 Patient: MARSHA MATTHEW Facility: [place], [place] Site . Site : 1950 Study: XRay Chest [id number]/25/2017 11:45:53 AM Ordering Physician: Doctor Euceda Final Report: INDICATION: Chest pain. Shortness breath. TECHNIQUE: Two-view chest. COMPARISON: Portable chest September 30, 2014. FINDINGS: Shallow inspiration. Bibasilar atelectasis. Overall heart size is at the upper limit of normal. Right total shoulder arthroplasty new compared to the prior study. Lower thoracic and lumbar spine fusion posteriorly incompletely visualized. IMPRESSION: Shallow inspiration. Basilar atelectasis. No acute cardiopulmonary process confidently identified. Dictated by Cameron Rodrigez MD @ 09/23/2016 12:05:12 PM Dictated by: Cameron Rodrigez MD @ 09/23/2016 12:05:18 (Electronic Signature) Report Signed by Proxy. ANURAG
--- NOTE | 2016-09-24 12:51 | CT ---
EXAM DATE: 09/23/16 PATIENT'S AGE: 66 Patient: MARSHA MATTHEW Facility: [place], [place] Site . Site : 1950 Study: CT Chest Angio [id number]/25/2017 12:54:57 PM Ordering Physician: Doctor Euceda Final Report: INDICATION: Elevated D-dimer. Sudden onset of SOB. Rule out pulmonary embolism. TECHNIQUE: Volumetric helical scanning of the thorax was performed during infusion of nonionic contrast material IV, timing optimized for pulmonary arterial opacification. Coronal and sagittal reconstructions were obtained. COMPARISON: None. FINDINGS: The images are of acceptable quality and demonstrate uniform vascular enhancement within the pulmonary arteries. A large embolus is demonstrated in the distal right pulmonary artery with extension into right lower and middle lobar arteries. A small embolus is demonstrated in the distal left lower lobar artery. A ground-glass infiltrate in the posterior right lower lobe is noted. No pleural effusion is demonstrated. No airway abnormality is evident. No mediastinal or hilar lymphadenopathy is demonstrated. The heart size is normal. Calcified coronary arterial plaque is demonstrated. A 5.0 x 3.1 cm substernal left thyroid nodule containing several small calcifications is demonstrated. Images of the upper abdomen are unremarkable. IMPRESSION: 1. Large embolus in the distal right pulmonary artery, extending into the right lower and middle lobe arteries comment and small left lower lobe embolus. 2. Ground-glass opacity in the posterior right lower lobe. Lungs otherwise essentially clear. 3. Coronary artery disease. 4. 5.0 x 3.1 cm substernal nodule arising from the lower left thyroid lobe. These findings were discussed with Annabelle Martinez NP at 1:25 p.m. on 2016. Please note that all CT scans at this facility use dose modulation, iterative reconstruction, and/or weight-based dosing when appropriate to reduce radiation dose to as low as reasonably achievable. Dictated by Tod Aguilar MD @ Sep 23 2016 1:15PM (Electronic Signature) Report Signed by Proxy. ANURAG
--- NOTE | 2016-09-24 13:18 | US ---
EXAM DATE: 09/23/16 PATIENT'S AGE: 66 Patient: MARSHA MATTHEW Facility: [place], [place] Site . Site : 1950 Study: US Abdomen [id number]/25/2017 1:25:38 PM Ordering Physician: Doctor Euceda Final Report: INDICATION: Abdominal pain. Technique: Abdominal ultrasound limited to the right upper quadrant. Findings: The liver is normal in size and displays changes of diffuse fatty infiltration. No focal abnormality in the liver. There is no dilatation of the biliary system. The common bile duct measures 4 mm. The pancreas and gallbladder are normal. The right kidney measures 11.4 cm in length and contains a 5 mm simple cyst. No free fluid in the right upper quadrant. Impression: 1. Diffuse fatty infiltration of the liver. 2. 5 cm simple cyst arising from the upper pole of the right kidney. Dictated by Dario Gunter MD @ Sep 23 2016 1:37PM (Electronic Signature) Report Signed by Proxy. ANURAG
[2016-09-24] MEDS ORDERED: Enoxaparin 150 MG/1 ML Syringe SUBCUT SCH (20:00)
[2016-09-24] MEDS: Simvastatin 40 MG Tab PO SCH (20:20)
[2016-09-24] MEDS: Metoprolol Succinate 100 MG Tab.ER PO SCH (20:21)
[2016-09-24] MEDS: Temazepam 15 MG Cap PO PRN (21:42)
[2016-09-25] MEDS: Omeprazole 20 MG Cap.CR PO SCH (08:15)
[2016-09-25] MEDS: Hydrochlorothiazide/Triamterene 25-37.5 Tab PO SCH (08:15)
[2016-09-25] MEDS: Gabapentin 800 MG Tab PO SCH ×2 (08:15→21:21)
[2016-09-25] MEDS: DULoxetine 60 MG Cap PO SCH (08:15)
[2016-09-25] MEDS: Multivitamin Tab PO SCH (08:15)
[2016-09-25] MEDS: Rivaroxaban 15 MG Tab PO SCH ×2 (08:15→21:21)
--- NOTE | 2016-09-25 10:31 | PCM.PN ---
- General Info Date of Service: 09/25/16 Admission Dx/Problem (Free Text): Admission Diagnosis/Problem Admission Diagnosis/Problem Pulmonary embolism Subjective Update: Feeling fair this morning, continues to have sharp right sided chest pain with deep breathing and having some hemoptysis. Dypsnea noted with activity, feels nervous about going home right now. No other concerns. Pain medication helping pain. Functional Status: Reports: tolerating diet, ambulating (short distances secondary to dyspnea), urinating. Denies: pain controlled - Review of Systems General: Reports: No Symptoms. Denies: Fever Pulmonary: Reports: shortness of breath, pleuritic chest pain, cough, hemoptysis Cardiovascular: Reports: No Symptoms. Denies: Chest Pain, Palpitations Gastrointestinal: Reports: No symptoms, Flatus. Denies: Abdominal pain, Constipation, Nausea, Vomiting - Patient Data Vitals - most recent: Last Vital Signs Temp 99.6 F 09/25/16 08:23 Pulse 85 09/25/16 08:23 Resp 18 09/25/16 08:23 BP 142/70 H 09/25/16 08:23 Pulse Ox 95 09/25/16 08:23 Weight - most recent: 129 kg I&O - last 24 hours: Intake & Output 09/24/16 09/25/16 09/25/16 22:59 06:59 14:59 Intake Total 1020 200 Output Total 1500 1700 Balance -480 -1500 Med Orders - Current: Current Medications Acetaminophen (Tylenol) 650 mg PO Q4H PRN PRN Reason: Pain (Mild 1-3)/fever Last Admin: 09/23/16 19:31 Dose: 650 mg Duloxetine HCl (Cymbalta) 60 mg PO DAILY [facility] Last Admin: 09/25/16 08:15 Dose: 60 mg Gabapentin (Neurontin) 800 mg PO BID [facility] Last Admin: 09/25/16 08:15 Dose: 800 mg Metoprolol Succinate (Toprol Xl) 100 mg PO BEDTIME [facility] Last Admin: 09/24/16 20:21 Dose: 100 mg Multivitamins/Minerals/Vitamin C (Tab-A-Stephania) 1 tab PO DAILY [facility] Last Admin: 09/25/16 08:15 Dose: 1 tab Omeprazole (Omeprazole) 40 mg PO BRK [facility] Last Admin: 09/25/16 08:15 Dose: 40 mg Oxycodone HCl (Oxycodone) 10 mg PO Q4H PRN PRN Reason: Pain (moderate 4-6) Last Admin: 09/24/16 21:42 Dose: 10 mg Rivaroxaban (Xarelto) 15 mg PO BID [facility] Last Admin: 09/25/16 08:15 Dose: 15 mg Simvastatin (Zocor) 20 mg PO BEDTIME [facility] Last Admin: 09/24/16 20:20 Dose: 20 mg Sodium Chloride (Saline Flush) 10 ml FLUSH ASDIRECTED PRN PRN Reason: Keep Vein Open Last Admin: 09/23/16 11:24 Dose: 10 ml Sodium Chloride (Saline Flush) 2.5 ml FLUSH ASDIRECTED PRN PRN Reason: Keep Vein Open Last Admin: 09/23/16 11:25 Dose: 2.5 ml Temazepam (Restoril) 15 mg PO BEDTIME PRN PRN Reason: Sleep Last Admin: 09/24/16 21:42 Dose: 15 mg Triamterene/HCTZ (Maxzide 25-37.5 Mg) 0.5 each PO DAILY [facility] Last Admin: 09/25/16 08:15 Dose: 0.5 each Discontinued Medications Aspirin (Aspirin) 324 mg PO ONETIME ONE Stop: 09/23/16 11:01 Last Admin: 09/23/16 11:23 Dose: 324 mg Enoxaparin Sodium (Lovenox) 130 mg SUBCUT ONETIME ONE Stop: 09/23/16 13:50 Last Admin: 09/23/16 14:11 Dose: Not Given Enoxaparin Sodium (Lovenox) 30 mg SUBCUT ONETIME ONE Stop: 09/23/16 14:01 Last Admin: 09/23/16 14:10 Dose: 30 mg Enoxaparin Sodium (Lovenox) 100 mg SUBCUT ONETIME ONE Stop: 09/23/16 14:01 Last Admin: 09/23/16 14:10 Dose: 100 mg Enoxaparin Sodium (Lovenox) 130 mg SUBCUT Q12H [facility] Gabapentin (Neurontin) 400 mg PO DAILY [facility] Hydromorphone HCl (Dilaudid) 1 mg IV ONETIME ONE Stop: 09/23/16 11:21 Last Admin: 09/23/16 13:42 Dose: Not Given Ketorolac Tromethamine (Toradol) 30 mg IVPUSH ONETIME ONE Stop: 09/23/16 11:01 Last Admin: 09/23/16 11:23 Dose: 30 mg Non-Formulary Medication (Flunisolide [Aerospan]) 2 spray NASBOTH DAILY [facility] - Exam Quality Assessment: DVT prophylaxis General: alert, oriented, cooperative, no acute distress Neck: supple Lungs: Clear to auscultation, Normal respiratory effort, Other (dyspnea noted with speech) Cardiovascular: Regular Rate, Regular Rhythm Abdomen: bowel sounds present, soft, no tenderness, no distension Extremities: no edema, normal pulses Neurological: no new focal deficit Psy/Mental Status: alert, normal affect, normal mood - Problem List & Annotations (1) Pulmonary emboli SNOMED Code(s): 93211833, 01514314 Code(s): I26.99 - OTHER PULMONARY EMBOLISM WITHOUT ACUTE COR PULMONALE Status: Acute Priority: High Current Visit: Yes Qualifiers: Pulmonary embolism type: other Chronicity: acute Acute cor pulmonale presence: without acute cor pulmonale Qualified Code(s): I26.99 - Other pulmonary embolism without acute cor pulmonale (2) GERD (gastroesophageal reflux disease) SNOMED Code(s): 540374482 Code(s): K21.9 - GASTRO-ESOPHAGEAL REFLUX DISEASE WITHOUT ESOPHAGITIS Status: Chronic Priority: Medium Current Visit: Yes Qualifiers: Esophagitis presence: esophagitis presence not specified Qualified Code(s) : K21.9 - Gastro-esophageal reflux disease without esophagitis (3) Hypertension SNOMED Code(s): 39015368 Code(s): I10 - ESSENTIAL (PRIMARY) HYPERTENSION Status: Chronic Priority : Medium Current Visit: Yes Qualifiers: Hypertension type: essential hypertension Qualified Code(s): I10 - Essential (primary) hypertension - Problem List Review Problem List Initiated/Reviewed/Updated: Yes - Plan Plan:: 66 year old male admitted with bilateral PE, HTN, and GERD. 1. Bilateral PE: Continues to have right sided chest pain. Continue Xarelto 15 mg PO BID for 21 days then 20 mg daily. Will need anticoagulation for 3-6 months. Will follow-up with [place] PCP after discharge. Still having some dyspnea and hyemoptysis, monitor today 2. HTN: Stable, continue Metoprolol and Triamterene/HCTZ 3. GERD: Stable, continue Omeprazole Dispo: 1-2 days.
[2016-09-25] MEDS: oxyCODONE 5 MG Tab PO PRN (12:15)
[2016-09-25] MEDS: Acetaminophen 325 MG Tab PO PRN (17:13)
[2016-09-25] MEDS: Simvastatin 40 MG Tab PO SCH (21:24)
[2016-09-25] MEDS: Metoprolol Succinate 100 MG Tab.ER PO SCH (21:24)
[2016-09-26] MEDS: Gabapentin 800 MG Tab PO SCH (08:55)
[2016-09-26] MEDS: Rivaroxaban 15 MG Tab PO SCH (08:55)
[2016-09-26] MEDS: DULoxetine 60 MG Cap PO SCH (08:55)
[2016-09-26] MEDS: Omeprazole 20 MG Cap.CR PO SCH (08:55)
[2016-09-26] MEDS: Hydrochlorothiazide/Triamterene 25-37.5 Tab PO SCH (08:56)
[2016-09-26] MEDS: Multivitamin Tab PO SCH (08:56)
[2016-09-26] MEDS: Acetaminophen 325 MG Tab PO PRN (09:21)
--- NOTE | 2016-09-26 12:01 | PCM.DCSUM1 ---
Addendum entered and electronically signed by Piot Alejandra MD 09/26/16 12:23 : Discharge Summary - Hospital Course Brief History: Patient presented to ED by EMS on 09/23/16 with sudden onset of dyspnea and right lateral chest pain. Pain initially started at 3 am and had awoken him from sleep. He took 1 tab of OxyContin and the pain resolved. At 7 am patient awoke and while getting dressed developed worsening pain to his right lower chest with associated shorness of breath. Pain was worse with deep breaths. He denied any recent fever, chills, nausea, vomiting, or radiation of pain into jaw or arm. He had L5-S1 fusion 6 weeks previously. - Discharge Data Discharge Date: 09/26/16 Discharge Disposition: Home, Self-Care 01 Condition: Good - Discharge Diagnosis/Problem(s) (1) Pulmonary emboli SNOMED Code(s): 08468357, [id number] ICD Code: I26.99 - OTHER PULMONARY EMBOLISM WITHOUT ACUTE COR PULMONALE Status: Acute Priority: High Current Visit: Yes Qualifiers: Pulmonary embolism type: other Chronicity: acute Acute cor pulmonale presence: without acute cor pulmonale Qualified Code(s): I26.99 - Other pulmonary embolism without acute cor pulmonale (2) Hypertension SNOMED Code(s): 64331757 ICD Code: I10 - ESSENTIAL (PRIMARY) HYPERTENSION Status: Chronic Priority : Medium Current Visit: Yes Qualifiers: Hypertension type: essential hypertension Qualified Code(s): I10 - Essential (primary) hypertension (3) GERD (gastroesophageal reflux disease) SNOMED Code(s): 659489357 ICD Code: K21.9 - GASTRO-ESOPHAGEAL REFLUX DISEASE WITHOUT ESOPHAGITIS Status: Chronic Priority: Medium Current Visit: Yes Qualifiers: Esophagitis presence: esophagitis presence not specified Qualified Code(s) : K21.9 - Gastro-esophageal reflux disease without esophagitis - Patient Instructions Diet: Heart Healthy Diet Activity: Rest and Relax Today Driving: Do Not Drive Showering/Bathing: May Shower Notify Provider of: Fever, Increased Pain, Swelling and Redness, Nausea and/or Vomiting - Discharge Plan Prescriptions/Med Rec: Rivaroxaban [Xarelto] 15 mg PO BID #37 tablet Home Medications: Home Meds DULoxetine [Cymbalta] 60 mg PO DAILY 11/09/13 [History] Metoprolol Succinate 100 mg PO BEDTIME 11/09/13 [History] Multivitamin [Multi-Vitamin Daily] 1 tab PO DAILY 11/09/13 [History] Omeprazole [Prilosec] 40 mg PO BRK 11/09/13 [History] Simvastatin [Zocor] 20 mg PO BEDTIME 11/09/13 [History] Triamterene/Hydrochlorothiazid [Triamterene-HCTZ 37.5-25 MG] 0.5 tab PO DAILY [History] Aspirin 81 mg PO DAILY 09/30/14 [History] Flunisolide [Aerospan] 2 spray NASBOTH DAILY 05/17/16 [History] Gabapentin [Neurontin] 400 mg PO DAILY 05/17/16 [History] Hydrocodone/Acetaminophen [Hydrocodon-Acetaminophn 10-325] 1 tab PO Q6HR PRN [History] oxyCODONE 10 mg PO ONETIME 09/23/16 [History] Rivaroxaban [Xarelto] 15 mg PO BID #37 tablet 09/26/16 [Rx] Patient Handouts: Rivaroxaban oral tablets, Pulmonary Embolism Referrals: Pj George MD [Primary Care Provider] - 10/05/16 10:00 am - General Info Date of Service: 09/26/16 Admission Dx/Problem (Free Text: Admission Diagnosis/Problem Admission Diagnosis/Problem Pulmonary embolism Subjective Update: Feeling well this morning. Still having occasional left sided chest pain with deep breath. Some small amount of hemoptsis occasionally with cough. Eating and eliminating without difficulty. No palpitations or shortness of breath. Ready to go home. Functional Status: Reports: pain controlled, tolerating diet, ambulating, urinating - Review of Systems General: Denies: Fever, Weakness, Fatigue HEENT: Denies: dysphasia, sore throat Pulmonary: Denies: shortness of breath Cardiovascular: Reports: Chest Pain. Denies: Palpitations, Dyspnea on Exertion , Lightheadedness Gastrointestinal: Denies: Abdominal pain, Constipation, Diarrhea Genitourinary: Denies: dysuria Musculoskeletal: Denies: neck pain, joint pain Skin: Denies: cyanosis Neurological: Denies: Confusion, Dizziness Psychiatric: Denies: confusion - Patient Data Vitals - Most Recent: Last Vital Signs Temp 36.9 C 09/26/16 08:00 Pulse 83 09/26/16 08:00 Resp 20 09/26/16 08:00 BP 134/69 09/26/16 08:00 Pulse Ox 96 09/26/16 08:00 Weight - Most Recent: 129 kg I&O - Last 24 hours: Intake & Output 09/25/16 09/26/16 09/26/16 22:59 06:59 14:59 Intake Total 840 800 Output Total 950 1430 Balance -110 -630 Med Orders - Current: Current Medications Acetaminophen (Tylenol) 650 mg PO Q4H PRN PRN Reason: Pain (Mild 1-3)/fever Last Admin: 09/26/16 09:21 Dose: 650 mg Duloxetine HCl (Cymbalta) 60 mg PO DAILY [facility] Last Admin: 09/26/16 08:55 Dose: 60 mg Gabapentin (Neurontin) 800 mg PO BID [facility] Last Admin: 09/26/16 08:55 Dose: 800 mg Metoprolol Succinate (Toprol Xl) 100 mg PO BEDTIME [facility] Last Admin: 09/25/16 21:24 Dose: 100 mg Multivitamins/Minerals/Vitamin C (Tab-A-Stephania) 1 tab PO DAILY [facility] Last Admin: 09/26/16 08:56 Dose: 1 tab Omeprazole (Omeprazole) 40 mg PO BRK [facility] Last Admin: 09/26/16 08:55 Dose: 40 mg Oxycodone HCl (Oxycodone) 10 mg PO Q4H PRN PRN Reason: Pain (moderate 4-6) Last Admin: 09/25/16 12:15 Dose: 10 mg Rivaroxaban (Xarelto) 15 mg PO BID [facility] Last Admin: 09/26/16 08:55 Dose: 15 mg Simvastatin (Zocor) 20 mg PO BEDTIME [facility] Last Admin: 09/25/16 21:24 Dose: 20 mg Sodium Chloride (Saline Flush) 10 ml FLUSH ASDIRECTED PRN PRN Reason: Keep Vein Open Last Admin: 09/23/16 11:24 Dose: 10 ml Sodium Chloride (Saline Flush) 2.5 ml FLUSH ASDIRECTED PRN PRN Reason: Keep Vein Open Last Admin: 09/23/16 11:25 Dose: 2.5 ml Temazepam (Restoril) 15 mg PO BEDTIME PRN PRN Reason: Sleep Last Admin: 09/24/16 21:42 Dose: 15 mg Triamterene/HCTZ (Maxzide 25-37.5 Mg) 0.5 each PO DAILY [facility] Last Admin: 09/26/16 08:56 Dose: 0.5 each Discontinued Medications Aspirin (Aspirin) 324 mg PO ONETIME ONE Stop: 09/23/16 11:01 Last Admin: 09/23/16 11:23 Dose: 324 mg Enoxaparin Sodium (Lovenox) 130 mg SUBCUT ONETIME ONE Stop: 09/23/16 13:50 Last Admin: 09/23/16 14:11 Dose: Not Given Enoxaparin Sodium (Lovenox) 30 mg SUBCUT ONETIME ONE Stop: 09/23/16 14:01 Last Admin: 09/23/16 14:10 Dose: 30 mg Enoxaparin Sodium (Lovenox) 100 mg SUBCUT ONETIME ONE Stop: 09/23/16 14:01 Last Admin: 09/23/16 14:10 Dose: 100 mg Enoxaparin Sodium (Lovenox) 130 mg SUBCUT Q12H [facility] Gabapentin (Neurontin) 400 mg PO DAILY [facility] Hydromorphone HCl (Dilaudid) 1 mg IV ONETIME ONE Stop: 09/23/16 11:21 Last Admin: 09/23/16 13:42 Dose: Not Given Ketorolac Tromethamine (Toradol) 30 mg IVPUSH ONETIME ONE Stop: 09/23/16 11:01 Last Admin: 09/23/16 11:23 Dose: 30 mg Non-Formulary Medication (Flunisolide [Aerospan]) 2 spray NASBOTH DAILY [facility] - Exam Quality Assessment: Reports: DVT prophylaxis General: Reports: alert, oriented, cooperative, no acute distress HEENT: Reports: Pupils equal, Pupils reactive, EOMI, Mucous membr. moist/pink Neck: Reports: supple Lungs: Reports: Clear to auscultation, Normal respiratory effort Cardiovascular: Reports: Regular Rate, Regular Rhythm Abdomen: Reports: bowel sounds present, soft, no tenderness, no distension Back Exam: Reports: Normal Inspection Extremities: Reports: no edema, normal pulses Skin: Reports: warm, dry, intact Wound/Incisions: Reports: healing well Neurological: Reports: no new focal deficit Psy/Mental Status: Reports: alert, normal affect, normal mood Original Note: Discharge Summary - Hospital Course HPI Initial Comments: 66 yo male admitted 09/23/16 for bilateral PE with pmh of htn, dyslipidemia, and recent back surgery. Brief History: Patient presented to ED by EMS on 09/23/16 with sudden onset of dyspnea and right lateral chest pain. Pain initially started at 3 am and had awoken him from sleep. He took 1 tab of OxyContin and the pain resolved. At 7 am patient awoke and while getting dressed developed worsening pain to his right lower chest with associated shorness of breath. Pain was worse with deep breaths. He denied any recent fever, chills, nausea, vomiting, or radiation of pain into jaw or arm. He had L5-S1 fusion 6 weeks previously. - Discharge Data Discharge Date: 09/26/16 Discharge Disposition: Home, Self-Care 01 Condition: Good - Discharge Diagnosis/Problem(s) (1) Pulmonary emboli SNOMED Code(s): 63915887, [id number] ICD Code: I26.99 - OTHER PULMONARY EMBOLISM WITHOUT ACUTE COR PULMONALE Status: Acute Priority: High Current Visit: Yes Qualifiers: Pulmonary embolism type: other Chronicity: acute Acute cor pulmonale presence: without acute cor pulmonale Qualified Code(s): I26.99 - Other pulmonary embolism without acute cor pulmonale (2) Hypertension SNOMED Code(s): 46133124 ICD Code: I10 - ESSENTIAL (PRIMARY) HYPERTENSION Status: Chronic Priority : Medium Current Visit: Yes Qualifiers: Hypertension type: essential hypertension Qualified Code(s): I10 - Essential (primary) hypertension (3) GERD (gastroesophageal reflux disease) SNOMED Code(s): 665703984 ICD Code: K21.9 - GASTRO-ESOPHAGEAL REFLUX DISEASE WITHOUT ESOPHAGITIS Status: Chronic Priority: Medium Current Visit: Yes Qualifiers: Esophagitis presence: esophagitis presence not specified Qualified Code(s) : K21.9 - Gastro-esophageal reflux disease without esophagitis - Patient Summary/Data Hospital Course: In ED, CT angio showed a large embolus in the distal right pulmonary artery extending into the right lower and middle lobe arteries as well as a small left lower lobe embolus. Troponin was negative and ECG showed no acute ischmic changes. Patient was admitted for Bilateral pulmonary embolism. He was intially treated with Lovenox BID then switched to Xarelto BID. He did well throughout his stay but still had mild left sided chest pain as well as a small amount of occasional hemoptsis. Patient was discharged in good condition on 09/26/16 with follow-up scheduled with his PCP, Dr. George. - Patient Instructions Diet: Heart Healthy Diet Activity: Rest and Relax Today Driving: Do Not Drive Showering/Bathing: July Shower Notify Provider of: Fever, Increased Pain, Swelling and Redness, Nausea and/or Vomiting - Discharge Plan Prescriptions/Med Rec: Rivaroxaban [Xarelto] 15 mg PO BID #37 tablet Home Medications: Home Meds DULoxetine [Cymbalta] 60 mg PO DAILY 11/09/13 [History] Metoprolol Succinate 100 mg PO BEDTIME 11/09/13 [History] Multivitamin [Multi-Vitamin Daily] 1 tab PO DAILY 11/09/13 [History] Omeprazole [Prilosec] 40 mg PO BRK 11/09/13 [History] Simvastatin [Zocor] 20 mg PO BEDTIME 11/09/13 [History] Triamterene/Hydrochlorothiazid [Triamterene-HCTZ 37.5-25 MG] 0.5 tab PO DAILY [History] Aspirin 81 mg PO DAILY 09/30/14 [History] Flunisolide [Aerospan] 2 spray NASBOTH DAILY 05/17/16 [History] Gabapentin [Neurontin] 400 mg PO DAILY 05/17/16 [History] Hydrocodone/Acetaminophen [Hydrocodon-Acetaminophn 10-325] 1 tab PO Q6HR PRN [History] oxyCODONE 10 mg PO ONETIME 09/23/16 [History] Rivaroxaban [Xarelto] 15 mg PO BID #37 tablet 09/26/16 [Rx] Patient Handouts: Rivaroxaban oral tablets, Pulmonary Embolism Referrals: Pj George MD [Primary Care Provider] - 10/05/16 10:00 am - Discharge Summary/Plan Comment DC Time >30 min.: Yes Discharge Summary/Plan Comment: 66 yo male admitted 09/23/16 for bilateral PE with pmh of htn, dyslipidemia, and recent back surgery. Patient presented to ED by EMS on 09/23/16 with sudden onset of dyspnea and right lateral chest pain. Pain initially started at 3 am and had awoken him from sleep. He took 1 tab of OxyContin and the pain resolved. At 7 am patient awoke and while getting dressed developed worsening pain to his right lower chest with associated shorness of breath. Pain was worse with deep breaths. He denied any recent fever, chills, nausea, vomiting, or radiation of pain into jaw or arm. He had L5-S1 fusion 6 weeks previously. In ED, CT angio showed a large embolus in the distal right pulmonary artery extending into the right lower and middle lobe arteries as well as a small left lower lobe embolus. Troponin was negative and ECG showed no acute ischmic changes. Patient was admitted for Bilateral pulmonary embolism. He was intially treated with Lovenox BID then switched to Xarelto BID. He did well throughout his stay but still had mild left sided chest pain as well as a small amount of occasional hemoptsis. Patient was discharged in good condition on 09/26/16 with follow-up scheduled with his PCP, Dr. George. He was given a prescription for Xarelto 15 mg PO BID for an additional 19 days for a total of 21 days. He should be switched to 20 mg after and remain anticoagulated for a minimum of 3-6 months. This was patient's first VTE and does not have history of coagualtions disorders. Most likely recent surgery and decreased activity was primary instigation of PE. - Patient Data Vitals - Most Recent: Last Vital Signs Temp 36.9 C 09/26/16 08:00 Pulse 83 09/26/16 08:00 Resp 20 09/26/16 08:00 BP 134/69 09/26/16 08:00 Pulse Ox 96 09/26/16 08:00 Weight - Most Recent: 129 kg I&O - Last 24 hours: Intake & Output 09/25/16 09/26/16 09/26/16 22:59 06:59 14:59 Intake Total 840 800 Output Total 950 1430 Balance -110 -630 Med Orders - Current: Current Medications Acetaminophen (Tylenol) 650 mg PO Q4H PRN PRN Reason: Pain (Mild 1-3)/fever Last Admin: 09/26/16 09:21 Dose: 650 mg Duloxetine HCl (Cymbalta) 60 mg PO DAILY [facility] Last Admin: 09/26/16 08:55 Dose: 60 mg Gabapentin (Neurontin) 800 mg PO BID [facility] Last Admin: 09/26/16 08:55 Dose: 800 mg Metoprolol Succinate (Toprol Xl) 100 mg PO BEDTIME [facility] Last Admin: 09/25/16 21:24 Dose: 100 mg Multivitamins/Minerals/Vitamin C (Tab-A-Stephania) 1 tab PO DAILY [facility] Last Admin: 09/26/16 08:56 Dose: 1 tab Omeprazole (Omeprazole) 40 mg PO BRK [facility] Last Admin: 09/26/16 08:55 Dose: 40 mg Oxycodone HCl (Oxycodone) 10 mg PO Q4H PRN PRN Reason: Pain (moderate 4-6) Last Admin: 09/25/16 12:15 Dose: 10 mg Rivaroxaban (Xarelto) 15 mg PO BID [facility] Last Admin: 09/26/16 08:55 Dose: 15 mg Simvastatin (Zocor) 20 mg PO BEDTIME [facility] Last Admin: 09/25/16 21:24 Dose: 20 mg Sodium Chloride (Saline Flush) 10 ml FLUSH ASDIRECTED PRN PRN Reason: Keep Vein Open Last Admin: 09/23/16 11:24 Dose: 10 ml Sodium Chloride (Saline Flush) 2.5 ml FLUSH ASDIRECTED PRN PRN Reason: Keep Vein Open Last Admin: 09/23/16 11:25 Dose: 2.5 ml Temazepam (Restoril) 15 mg PO BEDTIME PRN PRN Reason: Sleep Last Admin: 09/24/16 21:42 Dose: 15 mg Triamterene/HCTZ (Maxzide 25-37.5 Mg) 0.5 each PO DAILY [facility] Last Admin: 09/26/16 08:56 Dose: 0.5 each Discontinued Medications Aspirin (Aspirin) 324 mg PO ONETIME ONE Stop: 09/23/16 11:01 Last Admin: 09/23/16 11:23 Dose: 324 mg Enoxaparin Sodium (Lovenox) 130 mg SUBCUT ONETIME ONE Stop: 09/23/16 13:50 Last Admin: 09/23/16 14:11 Dose: Not Given Enoxaparin Sodium (Lovenox) 30 mg SUBCUT ONETIME ONE Stop: 09/23/16 14:01 Last Admin: 09/23/16 14:10 Dose: 30 mg Enoxaparin Sodium (Lovenox) 100 mg SUBCUT ONETIME ONE Stop: 09/23/16 14:01 Last Admin: 09/23/16 14:10 Dose: 100 mg Enoxaparin Sodium (Lovenox) 130 mg SUBCUT Q12H [facility] Gabapentin (Neurontin) 400 mg PO DAILY [facility] Hydromorphone HCl (Dilaudid) 1 mg IV ONETIME ONE Stop: 09/23/16 11:21 Last Admin: 09/23/16 13:42 Dose: Not Given Ketorolac Tromethamine (Toradol) 30 mg IVPUSH ONETIME ONE Stop: 09/23/16 11:01 Last Admin: 09/23/16 11:23 Dose: 30 mg Non-Formulary Medication (Flunisolide [Aerospan]) 2 spray NASBOTH DAILY [facility] *Q Meaningful Use (DIS) - VTE *Q VTE Criteria *Q: - Stroke *Q Stroke Criteria *Q: - AMI *Q AMI Criteria *Q:
[2016-09-26 14:04] VITALS: BP 139/85
== END 2016-09-26 14:20 | disposition home or self-care (01) | DRG 176 ==
LOC: MW.ED 10:42 → MW.MS 13:51
PROVIDERS: ADMIT Family Medicine; ATTEND Family Medicine
DX: I26.99 Other pulmonary embolism without acute cor pulmonale (principal); I10 Essential (primary) hypertension; K21.9 Gastro-esophageal reflux disease without esophagitis; E78.00 Pure hypercholesterolemia, unspecified; F32.9 Major depressive disorder, single episode, unspecified; E03.9 Hypothyroidism, unspecified; Z87.891 Personal history of nicotine dependence; Z79.899 Other long term (current) drug therapy; Z79.82 Long term (current) use of aspirin
CPT/HCPCS: 36415; 71020; 71275; 76705; 80053; 82150; 83690; 84484; 85025; 85379; 85610; 93005; 96374; 99285; A9270; J1885; 80048; 96372; 97116-GP; 97161-GP; 99284; J1650

== ENCOUNTER 2016-10-01 10:32 | Observation (INO) | payer MEDICARE, OTHER ==
[2016-10-01] MEDS ORDERED: Ketorolac 30 MG/ML SDV IVPUSH ONE (11:01)
[2016-10-01] MEDS ORDERED: Famotidine 20 MG/2 ML SDV IVPUSH ONE (11:01)
--- NOTE | 2016-10-01 11:08 | EDM.PDOC ---
ED HPI GENERAL MEDICAL PROBLEM - General Chief Complaint: Chest Pain Stated Complaint: CHEST PAIN Time Seen by Provider: 10/01/16 11:00 Source of Information: Reports: Patient History Limitations: Reports: No Limitations - History of Present Illness INITIAL COMMENTS - FREE TEXT/NARRATIVE: History of present illness: [66-year-old male presenting with acute onset of right-sided chest pain. Patient indicates he has a history of PEs and is concerned that he is having another one secondary to this discomfort/pain is consistent with what he was experiencing with initial diagnosis.] Review of systems: As per history of present illness and below otherwise all systems reviewed and negative. Past medical history: As per history of present illness and as reviewed below otherwise noncontributory. Surgical history: As per history of present illness and as reviewed below otherwise noncontributory. Social history: No reported history of drug or alcohol abuse. Family history: As per history of present illness and as reviewed below otherwise noncontributory. Physical exam: HEENT: Atraumatic, normocephalic, pupils reactive, negative for conjunctival pallor or scleral icterus, mucous membranes moist, throat clear, neck supple, nontender, trachea midline. Lungs: Clear to auscultation, breath sounds equal bilaterally, chest nontender. Heart: S1S2, regular, negative for clicks, rubs, or JVD. Abdomen: Soft, nondistended, nontender. Negative for masses or hepatosplenomegaly. Negative for costovertebral tenderness. Pelvis: Stable nontender. Genitourinary: Deferred. Rectal: Deferred. Extremities: Atraumatic, negative for cords or calf pain. Neurovascular unremarkable. Neuro: Awake, alert, oriented. Cranial nerves II through XII unremarkable. Cerebellum unremarkable. Motor and sensory unremarkable throughout. Exam nonfocal. Global assessment is benign save subjective complaint as noted in history of present illness. Patient indicates right-sided chest pain with increased discomfort and inspiration and presence of a known PE. Diagnostics: [CBC, CMP, troponin, lipase, amylase, chest x-ray, EKG, CTA, d-dimer] Therapeutics: [] Impression: [Unchanged PE, new infiltrate and infarct of right lung] Plan: [Admit to observation] Definitive disposition and diagnosis as appropriate pending reevaluation and review of above. Right Lower Chest Pain Score (Numeric/FACES): 6 - Related Data Allergies Allergy/AdvReac Type Severity Reaction Status Date / Time No Known Allergies Allergy Verified 10/01/16 10:36 Home Meds: Home Meds DULoxetine [Cymbalta] 60 mg PO DAILY 11/09/13 [History] Metoprolol Succinate 100 mg PO BEDTIME 11/09/13 [History] Multivitamin [Multi-Vitamin Daily] 1 tab PO DAILY 11/09/13 [History] Omeprazole [Prilosec] 40 mg PO BRK 11/09/13 [History] Simvastatin [Zocor] 20 mg PO BEDTIME 11/09/13 [History] Triamterene/Hydrochlorothiazid [Triamterene-HCTZ 37.5-25 MG] 0.5 tab PO DAILY [History] Aspirin 81 mg PO DAILY 09/30/14 [History] Flunisolide [Aerospan] 2 spray NASBOTH DAILY 05/17/16 [History] Gabapentin [Neurontin] 400 mg PO DAILY 05/17/16 [History] Hydrocodone/Acetaminophen [Hydrocodon-Acetaminophn 10-325] 1 tab PO Q6HR PRN [History] oxyCODONE 10 mg PO ONETIME 09/23/16 [History] Rivaroxaban [Xarelto] 15 mg PO BID #37 tablet 09/26/16 [Rx] Past Medical History HEENT History: Reports: Hard of Hearing Other HEENT History: wears glasses, keith hearing aids Cardiovascular History: Reports: High Cholesterol, Hypertension Respiratory History: Reports: PE, Sleep Apnea Other Respiratory History: uses CPAP Gastrointestinal History: Reports: GERD Musculoskeletal History: Reports: Back Pain, Chronic, Osteoarthritis Neurological History: Reports: Neuropathy, Peripheral Other Neuro History: bilateral pads of feet Psychiatric History: Reports: Depression Endocrine/Metabolic History: Reports: Hypothyroidism, Obesity/BMI 30+ Hematologic History: Reports: Blood Transfusion(s) Other Hematologic History: states had blood transfusion with one of his back surgeries Oncologic (Cancer) History: Reports: None - Infectious Disease History Infectious Disease History: Reports: Chicken Pox, Measles, Mumps Other Infectious Disease History: pateint questions MRSA history, disagrees that itis on his chart - Past Surgical History Head Surgeries/Procedures: Reports: None Neurological Surgical History: Reports: Lumbar Spine Musculoskeletal Surgical History: Reports: Hip Replacement, Knee Replacement, Shoulder Replacement, Shoulder Surgery, Other (See Below) Other Musculoskeletal Surgeries/Procedures:: bilateral knees, right shoulder, and recent lumbar fusion Social & Family History - Family History Family Medical History: Noncontributory Oncologic: Reports: Breast, Leukemia, Lung, Other (See Below) Other Oncologic Family History: maternal breast CA, paternal lung CA - Tobacco Use Smoking Status *Q: Never Smoker Years of Tobacco use: 7 Used Tobacco, but Quit: Yes Month Tobacco Last Used: winter in 1972 Second Hand Smoke Exposure: No - Caffeine Use Caffeine Use: Reports: Coffee, Tea - Alcohol Use Days Per Week of Alcohol Use: 0 Number of Drinks Per Day: 0 Total Drinks Per Week: 0 - Recreational Drug Use Recreational Drug Use: No Drug Use in Last 12 Months: No ED ROS GENERAL - Review of Systems Review Of Systems: See Below (See history of present illness) ED EXAM, GENERAL - Physical Exam Exam: See Below (History of present illness) Course - Vital Signs Last Recorded V/S: Last Vital Signs Temp 36.4 C 10/01/16 10:37 Pulse 71 10/01/16 10:37 Resp 20 10/01/16 10:37 BP 142/71 H 10/01/16 10:37 Pulse Ox 97 10/01/16 10:37 - Orders/Labs/Meds Orders: Active Orders 24 hr Category Date Time Status Cardiac Monitoring [RC] . DIRECTED Care 10/01/16 10:42 Active EKG Documentation Completion [RC] STAT Care 10/01/16 10:42 Active EKG Documentation Completion [RC] STAT Care 10/01/16 11:01 Inactive Chest 2V [CR] Stat Exams 10/01/16 11:01 Taken Chest PE [Ang Chest] [CT] Stat Exams 10/01/16 11:28 Taken Saline Lock Insert [OM.PC] Stat Oth 10/01/16 11:01 Ordered Labs: Laboratory Tests 10/01/16 10/01/16 10/01/16 Range/Units 10:45 10:49 10:49 WBC 9.69 (4.0-11.0) K/uL RBC 3.88 L (4.50-5.90) M/uL Hgb 10.7 L (13.0-17.0) g/dL Hct 33.9 L (38.0-50.0) % MCV 87.4 (80.0-98.0) fL MCH 27.6 (27.0-32.0) pg MCHC 31.6 (31.0-37.0) g/dL RDW Std Deviation 46.3 (28.0-62.0) fl RDW Coeff of Nancy 15 (11.0-15.0) % Plt Count 481 H (150-400) K/uL MPV 8.50 (7.40-12.00) fL Neut % (Auto) 56.4 (48.0-80.0) % Lymph % (Auto) 25.1 (16.0-40.0) % [place] % (Auto) 10.5 (0.0-15.0) % Eos % (Auto) 7.2 H (0.0-7.0) % Baso % (Auto) 0.8 (0.0-1.5) % Neut # (Auto) 5.5 (1.4-5.7) K/uL Lymph # (Auto) 2.4 (0.6-2.4) K/uL [place] # (Auto) 1.0 H (0.0-0.8) K/uL Eos # (Auto) 0.7 (0.0-0.7) K/uL Baso # (Auto) 0.1 (0.0-0.1) K/uL Nucleated RBC % 0.0 /100WBC Nucleated RBCs # 0 K/uL INR 1.26 H (0.86-1.11) D-Dimer, Quantitative 4.21 H (0.0-0.52) mg/LFEU Sodium (136-146) mmol/L Potassium (3.5-5.1) mmol/L Chloride (98-110) mmol/L Carbon Dioxide (21-31) mmol/L BUN (6.0-23.0) mg/dL Creatinine (0.6-1.5) mg/dL Est Cr Clr Drug Dosing Estimated GFR (MDRD) ml/min Glucose (60-110) mg/dL Calcium (8.8-10.8) mg/dL Total Bilirubin (0.1-1.5) mg/dL AST (5-40) IU/L ALT (8-54) IU/L Alkaline Phosphatase (40-150) CK-MB (CK-2) (0-6.6) ng/ml Troponin I (0.0-0.29) NG/ML B-Natriuretic Peptide (<100) PG/ML Total Protein (6.0-8.0) g/dL Albumin (3.4-4.8) g/dL Globulin (2.0-3.5) g/dL Albumin/Globulin Ratio (1.3-2.8) Amylase 48 (10-90) U/L Lipase 25 (7-80) U/L Urine Color Urine Appearance Urine pH (5.0-8.0) Ur Specific [place] (1.001-1.035) Urine Protein (NEGATIVE) mg/dL Urine Glucose (UA) (NEGATIVE) mg/dL Urine Ketones (NEGATIVE) mg/dL Urine Occult Blood (NEGATIVE) Urine Nitrite (NEGATIVE) Urine Bilirubin (NEGATIVE) Urine Urobilinogen (<2.0) EU/dL Ur Leukocyte Esterase (NEGATIVE) Urine RBC (0-2/HPF) Urine WBC (0-5/HPF) Urine Bacteria (NEGATIVE) 10/01/16 10/01/16 10/01/16 Range/Units 10:49 10:49 10:49 WBC (4.0-11.0) K/uL RBC (4.50-5.90) M/uL Hgb (13.0-17.0) g/dL Hct (38.0-50.0) % MCV (80.0-98.0) fL MCH (27.0-32.0) pg MCHC (31.0-37.0) g/dL RDW Std Deviation (28.0-62.0) fl RDW Coeff of Nancy (11.0-15.0) % Plt Count (150-400) K/uL MPV (7.40-12.00) fL Neut % (Auto) (48.0-80.0) % Lymph % (Auto) (16.0-40.0) % [place] % (Auto) (0.0-15.0) % Eos % (Auto) (0.0-7.0) % Baso % (Auto) (0.0-1.5) % Neut # (Auto) (1.4-5.7) K/uL Lymph # (Auto) (0.6-2.4) K/uL [place] # (Auto) (0.0-0.8) K/uL Eos # (Auto) (0.0-0.7) K/uL Baso # (Auto) (0.0-0.1) K/uL Nucleated RBC % /100WBC Nucleated RBCs # K/uL INR (0.86-1.11) D-Dimer, Quantitative (0.0-0.52) mg/LFEU Sodium 138 (136-146) mmol/L Potassium 4.2 (3.5-5.1) mmol/L Chloride 103 (98-110) mmol/L Carbon Dioxide 23 (21-31) mmol/L BUN 17 (6.0-23.0) mg/dL Creatinine 1.0 (0.6-1.5) mg/dL Est Cr Clr Drug Dosing TNP Estimated GFR (MDRD) > 60.0 ml/min Glucose 117 H (60-110) mg/dL Calcium 9.6 (8.8-10.8) mg/dL Total Bilirubin 0.6 (0.1-1.5) mg/dL AST 18 (5-40) IU/L ALT 18 (8-54) IU/L Alkaline Phosphatase 96 (40-150) CK-MB (CK-2) 0.6 (0-6.6) ng/ml Troponin I < 0.10 (0.0-0.29) NG/ML B-Natriuretic Peptide 48 (<100) PG/ML Total Protein 7.7 (6.0-8.0) g/dL Albumin 3.1 L (3.4-4.8) g/dL Globulin 4.6 H (2.0-3.5) g/dL Albumin/Globulin Ratio 0.7 L (1.3-2.8) Amylase (10-90) U/L Lipase (7-80) U/L Urine Color Urine Appearance Urine pH (5.0-8.0) Ur Specific [place] (1.001-1.035) Urine Protein (NEGATIVE) mg/dL Urine Glucose (UA) (NEGATIVE) mg/dL Urine Ketones (NEGATIVE) mg/dL Urine Occult Blood (NEGATIVE) Urine Nitrite (NEGATIVE) Urine Bilirubin (NEGATIVE) Urine Urobilinogen (<2.0) EU/dL Ur Leukocyte Esterase (NEGATIVE) Urine RBC (0-2/HPF) Urine WBC (0-5/HPF) Urine Bacteria (NEGATIVE) 10/01/16 Range/Units 13:45 WBC (4.0-11.0) K/uL RBC (4.50-5.90) M/uL Hgb (13.0-17.0) g/dL Hct (38.0-50.0) % MCV (80.0-98.0) fL MCH (27.0-32.0) pg MCHC (31.0-37.0) g/dL RDW Std Deviation (28.0-62.0) fl RDW Coeff of Nancy (11.0-15.0) % Plt Count (150-400) K/uL MPV (7.40-12.00) fL Neut % (Auto) (48.0-80.0) % Lymph % (Auto) (16.0-40.0) % [place] % (Auto) (0.0-15.0) % Eos % (Auto) (0.0-7.0) % Baso % (Auto) (0.0-1.5) % Neut # (Auto) (1.4-5.7) K/uL Lymph # (Auto) (0.6-2.4) K/uL [place] # (Auto) (0.0-0.8) K/uL Eos # (Auto) (0.0-0.7) K/uL Baso # (Auto) (0.0-0.1) K/uL Nucleated RBC % /100WBC Nucleated RBCs # K/uL INR (0.86-1.11) D-Dimer, Quantitative (0.0-0.52) mg/LFEU Sodium (136-146) mmol/L Potassium (3.5-5.1) mmol/L Chloride (98-110) mmol/L Carbon Dioxide (21-31) mmol/L BUN (6.0-23.0) mg/dL Creatinine (0.6-1.5) mg/dL Est Cr Clr Drug Dosing Estimated GFR (MDRD) ml/min Glucose (60-110) mg/dL Calcium (8.8-10.8) mg/dL Total Bilirubin (0.1-1.5) mg/dL AST (5-40) IU/L ALT (8-54) IU/L Alkaline Phosphatase (40-150) CK-MB (CK-2) (0-6.6) ng/ml Troponin I (0.0-0.29) NG/ML B-Natriuretic Peptide (<100) PG/ML Total Protein (6.0-8.0) g/dL Albumin (3.4-4.8) g/dL Globulin (2.0-3.5) g/dL Albumin/Globulin Ratio (1.3-2.8) Amylase (10-90) U/L Lipase (7-80) U/L Urine Color YELLOW Urine Appearance CLEAR Urine pH 7.0 (5.0-8.0) Ur Specific [place] 1.015 (1.001-1.035) Urine Protein NEGATIVE (NEGATIVE) mg/dL Urine Glucose (UA) NEGATIVE (NEGATIVE) mg/dL Urine Ketones NEGATIVE (NEGATIVE) mg/dL Urine Occult Blood TRACE-LYSED (NEGATIVE) Urine Nitrite NEGATIVE (NEGATIVE) Urine Bilirubin NEGATIVE (NEGATIVE) Urine Urobilinogen 0.2 (<2.0) EU/dL Ur Leukocyte Esterase NEGATIVE (NEGATIVE) Urine RBC 0-1 (0-2/HPF) Urine WBC NONE SEEN (0-5/HPF) Urine Bacteria RARE (NEGATIVE) Meds: Medications Discontinued Medications Generic Name Dose Route Start Last Admin Trade Name Freq PRN Reason Stop Dose Admin Famotidine 20 mg 10/01/16 11:01 Pepcid IVPUSH 10/01/16 11:02 ONETIME ONE Iopamidol 50 ml 10/01/16 12:25 10/01/16 12:26 Isovue Multipack-370 (76%) IVPUSH 10/01/16 12:26 50 ml ONETIME STA Administration Ketorolac Tromethamine 30 mg 10/01/16 11:01 Toradol IVPUSH 10/01/16 11:02 ONETIME ONE Departure - Departure Time of Disposition: 15:01 Disposition: Refer to Observation Condition: Good Clinical Impression: Atypical chest pain - Discharge Information Forms: ED Department Discharge - My Orders Last 24 Hours: My Active Orders 10/01/16 11:01 EKG Documentation Completion [RC] STAT Chest 2V [CR] Stat Saline Lock Insert [OM.PC] Stat 10/01/16 11:28 Chest PE [Ang Chest] [CT] Stat - Assessment/Plan Last 24 Hours: My Active Orders 10/01/16 11:01 EKG Documentation Completion [RC] STAT Chest 2V [CR] Stat Saline Lock Insert [OM.PC] Stat 10/01/16 11:28 Chest PE [Ang Chest] [CT] Stat
[2016-10-01 11:25] LABS: CHLORIDE,CL 103 mmol/L (98-110); SODIUM,NA 138 mmol/L (136-146)
[2016-10-01] MEDS ORDERED: Iopamidol 755 MG/ML 500 ML Multipack Bottle IVPUSH STA (12:25)
--- NOTE | 2016-10-01 15:59 | PCM.HP ---
H&P History of Present Illness - General Date of Service: 10/01/16 Admit Problem/Dx: Admission Diagnosis/Problem Admission Diagnosis/Problem Pneumonia Source of Information: Patient, Family History Limitations: Reports: No Limitations - History of Present Illness Initial Comments - Free Text/Narative: 66 yo male presented to ED c/o of right lower chest pain. He was admitted last week x 3 days for moderate to large PE on right side and small PE on left side. He was anticoagulated with lovenox and switched to xarelto. He was scheduled to take oxycodone twice a day but he takes once at night. His pain is not well controlled. He denies fever, chills, productive cough, n/v/d, abdominal pain, lower extremity swelling. Chest angio in the ED showed moderate large PE on the right side and small PE on the left side. There are no new changes except trace right small pleural effusion. D-Dimer 4.21, negative troponin, normal cbc and cmp. He does not have cardiac history. He recently had spinal fusion surgery in [place] in july 2016. Right Lower Chest Pain Score (Numeric/FACES): 6 - Related Data Allergies/Adverse Reactions: Allergies Allergy/AdvReac Type Severity Reaction Status Date / Time No Known Allergies Allergy Verified 10/01/16 10:36 Home Medications: Home Meds DULoxetine [Cymbalta] 60 mg PO DAILY 11/09/13 [History] Metoprolol Succinate 100 mg PO BEDTIME 11/09/13 [History] Multivitamin [Multi-Vitamin Daily] 1 tab PO DAILY 11/09/13 [History] Omeprazole [Prilosec] 40 mg PO ACBREAKFAST 11/09/13 [History] Simvastatin [Zocor] 20 mg PO BEDTIME 11/09/13 [History] Triamterene/Hydrochlorothiazid [Triamterene-HCTZ 37.5-25 MG] 1 tab PO DAILY 02/12 [History] Flunisolide [Aerospan] 2 spray NASBOTH DAILY PRN 05/17/16 [History] Gabapentin [Neurontin] 800 mg PO TID 10/01/16 [History] Rivaroxaban [Xarelto] 15 mg PO BID 10/01/16 [History] Sennosides/Docusate Sodium [Sennosides-Docusate Sodium] 1 - 2 each PO DAILY PRN 10/01/16 [History] oxyCODONE ER [OxyCONTIN] 10 mg PO QPM 10/01/16 [History] Past Medical History HEENT History: Reports: Hard of Hearing Other HEENT History: wears glasses, keith hearing aids Cardiovascular History: Reports: High Cholesterol, Hypertension Respiratory History: Reports: PE, Sleep Apnea Other Respiratory History: uses CPAP Gastrointestinal History: Reports: GERD Musculoskeletal History: Reports: Back Pain, Chronic, Osteoarthritis Neurological History: Reports: Neuropathy, Peripheral Other Neuro History: bilateral pads of feet Psychiatric History: Reports: Depression Endocrine/Metabolic History: Reports: Hypothyroidism, Obesity/BMI 30+ Hematologic History: Reports: Blood Transfusion(s) Other Hematologic History: states had blood transfusion with one of his back surgeries Oncologic (Cancer) History: Reports: None - Infectious Disease History Infectious Disease History: Reports: Chicken Pox, Measles, Mumps Other Infectious Disease History: pateint questions MRSA history, disagrees that itis on his chart - Past Surgical History Head Surgeries/Procedures: Reports: None Neurological Surgical History: Reports: Lumbar Spine Musculoskeletal Surgical History: Reports: Hip Replacement, Knee Replacement, Shoulder Replacement, Shoulder Surgery, Other (See Below) Other Musculoskeletal Surgeries/Procedures:: bilateral knees, right shoulder, and recent lumbar fusion Social & Family History - Family History Family Medical History: Noncontributory Oncologic: Reports: Breast, Leukemia, Lung, Other (See Below) Other Oncologic Family History: maternal breast CA, paternal lung CA - Tobacco Use Smoking Status *Q: Never Smoker Years of Tobacco use: 7 Used Tobacco, but Quit: Yes Month Tobacco Last Used: winter in 1972 Second Hand Smoke Exposure: No - Caffeine Use Caffeine Use: Reports: Coffee, Tea - Alcohol Use Days Per Week of Alcohol Use: 0 Number of Drinks Per Day: 0 Total Drinks Per Week: 0 - Recreational Drug Use Recreational Drug Use: No Drug Use in Last 12 Months: No H&P Review of Systems - Review of Systems: Review Of Systems: See Below General: Reports: No Symptoms HEENT: Reports: No Symptoms Pulmonary: Reports: Shortness of Breath, Pleuritic Chest Pain, Cough. Denies: Wheezing, Sputum, Hemoptysis Cardiovascular: Reports: No Symptoms Gastrointestinal: Reports: No Symptoms Musculoskeletal: Reports: No Symptoms Skin: Reports: No Symptoms Psychiatric: Reports: No Symptoms Neurological: Reports: No Symptoms Hematologic/Lymphatic: Reports: No Symptoms Immunologic: Reports: No Symptoms Exam - Exam Exam: See Below - Vital Signs Vital Signs: Last Vital Signs Temp 97.8 F 10/01/16 15:05 Pulse 77 10/01/16 15:05 Resp 20 10/01/16 15:05 BP 111/73 10/01/16 15:05 Pulse Ox 98 10/01/16 15:05 Weight: 129 kg - Exam General: Alert, Oriented, Cooperative HEENT: Conjunctiva Clear, EOMI Neck: Supple, Trachea Midline Lungs: Clear to Auscultation, Normal Respiratory Effort Cardiovascular: Regular Rate, Regular Rhythm Abdomen: Normal Bowel Sounds, Soft Extremities: Normal Inspection, Normal Pulses. No: Calf Tenderness, Edema, Increased Warmth Peripheral Pulses: 2+: Dorsalis Pedis (L), Dorsalis Pedis (R) Skin: Warm, Dry, Intact Neurological: Cranial Nerves Intact, Reflexes Equal Bilateral Neuro Extensive - Mental Status: Alert, Oriented x3, Normal Mood/Affect Psychiatric: Alert, Normal Affect, Normal Mood - Patient Data Result Diagrams: 10/01/16 10:49 10/01/16 10:49 *Q Meaningful Use (ADM) - VTE *Q VTE Criteria *Q: - Stroke *Q Stroke Criteria *Q: - AMI *Q AMI Criteria *Q: Problem List Initiated/Reviewed/Updated: Yes Orders Last 24hrs: Active Orders 24 hr Category Date Time Status Telemetry Monitoring [Cardiac Monitoring] [RC] UPON Care 10/01/16 14:43 Active Assessment/Plan Comment:: 66 yo male admitted for pneumonia Admit for observation sputum culture, start PO levaquin 750 QD PE: no change, continue xeralto 15 mg po bid and SCD boots. oxycodone Bid prn for pain. CP: trend troponin, echo ordered today Diet: regular
[2016-10-01] MEDS ORDERED: FLUNISOLIDE NASBOTH PRN (16:11)
[2016-10-01] MEDS ORDERED: Temazepam 15 MG Cap PO PRN (16:13)
[2016-10-01] MEDS ORDERED: Ondansetron 4 MG Tab.DIS PO PRN (16:13)
[2016-10-01] MEDS ORDERED: Levofloxacin 250 MG Tab PO SCH (17:00)
[2016-10-01] MEDS ORDERED: oxyCODONE ER 10 MG TAB.ER PO SCH ×2 (18:00→22:00)
[2016-10-01] MEDS ORDERED: Simvastatin 20 MG Tab PO SCH (21:00)
[2016-10-01] MEDS ORDERED: Metoprolol Succinate 100 MG Tab.ER PO SCH (21:00)
[2016-10-01] MEDS: Rivaroxaban 15 MG Tab PO SCH (21:36)
[2016-10-01] MEDS: Gabapentin 800 MG Tab PO SCH (21:37)
[2016-10-02 05:48] LABS: CHLORIDE,CL 102 mmol/L (98-110); SODIUM,NA 137 mmol/L (136-146)
[2016-10-02] MEDS: Gabapentin 800 MG Tab PO SCH (07:01)
[2016-10-02] MEDS ORDERED: Omeprazole 20 MG Cap.CR PO SCH (07:30)
[2016-10-02] MEDS: Rivaroxaban 15 MG Tab PO SCH (08:29)
[2016-10-02] MEDS ORDERED: Multivitamin Tab PO SCH (09:00)
[2016-10-02] MEDS ORDERED: Hydrochlorothiazide/Triamterene 25-37.5 Tab PO SCH (09:00)
[2016-10-02] MEDS ORDERED: DULoxetine 60 MG Cap PO SCH (09:00)
--- NOTE | 2016-10-02 11:37 | PCM.DCSUM1 ---
<Marlee Cherry - Last Filed: 10/02/16 13:10> Discharge Summary - Hospital Course Free Text/Narrative:: 66 yo male with bilateral Pulmonary emboli admitted for pneumonia and r/o ACS. He presented to the ED with right sided chest pain. He was recently admitted for four days with bilateral Pulmonary embolism treated with lovenox and discharged with xeralto. He takes oxycodone once a night. He recently had spinal fusion surgery in [place] 07/2016. repeat Chest angio revealed bilateral pulmonary emboli right greater than left which has not changed from previous admission from last week. There is small right sided pleural effusion which could represent pneumonia although he did not have have fever, chills, elevated wbc. He was started on levaquin, xarelto was continued along with oxycodone prn. His troponin x3 negative. Echo was done today. His pain has improved. He is discharged in stable condition resuming his home medications. Of note there is an incidental finding of 5 cm thyroid mass on the CT. He is to follow up with Dr. George saturday where he has an appointment. - Discharge Data Discharge Date: 10/02/16 Discharge Disposition: Home, Self-Care 01 Condition: Good - Patient Instructions Diet: Heart Healthy Diet Activity: As Tolerated Driving: May Drive Today Showering/Bathing: May Shower Notify Provider of: Fever, Increased Pain, Swelling and Redness, Drainage, Nausea and/or Vomiting - Discharge Plan Home Medications: Home Meds DULoxetine [Cymbalta] 60 mg PO DAILY 11/09/13 [History] Metoprolol Succinate 100 mg PO BEDTIME 11/09/13 [History] Multivitamin [Multi-Vitamin Daily] 1 tab PO DAILY 11/09/13 [History] Omeprazole [Prilosec] 40 mg PO ACBREAKFAST 11/09/13 [History] Simvastatin [Zocor] 20 mg PO BEDTIME 11/09/13 [History] Triamterene/Hydrochlorothiazid [Triamterene-HCTZ 37.5-25 MG] 1 tab PO DAILY 02/12 [History] Flunisolide [Aerospan] 2 spray NASBOTH DAILY PRN 05/17/16 [History] Gabapentin [Neurontin] 800 mg PO TID 10/01/16 [History] Rivaroxaban [Xarelto] 15 mg PO BID 10/01/16 [History] Sennosides/Docusate Sodium [Sennosides-Docusate Sodium] 1 - 2 each PO DAILY PRN 10/01/16 [History] oxyCODONE ER [OxyCONTIN] 10 mg PO QPM 10/01/16 [History] Patient Handouts: Pulmonary Embolism Referrals: Pj George MD [Primary Care Provider] - 10/05/16 - General Info Date of Service: 10/02/16 Functional Status: Reports: pain controlled - Review of Systems General: Reports: No Symptoms HEENT: Reports: no symptoms Pulmonary: Reports: pleuritic chest pain (improved). Denies: cough, sputum, hemoptysis, wheezing Cardiovascular: Reports: No Symptoms Gastrointestinal: Reports: No symptoms Genitourinary: Reports: no symptoms Musculoskeletal: Reports: no symptoms Skin: Reports: no symptoms Neurological: Reports: No Symptoms Psychiatric: Reports: no symptoms - Patient Data Vitals - Most Recent: Last Vital Signs Temp 96.5 F 10/02/16 07:54 Pulse 76 10/02/16 08:30 Resp 20 10/02/16 07:54 BP 120/59 L 10/02/16 08:30 Pulse Ox 98 10/02/16 07:54 Weight - Most Recent: 129 kg I&O - Last 24 hours: Intake & Output 10/01/16 10/02/16 10/02/16 22:59 06:59 14:59 Intake Total 0 640 Output Total 0 1000 Balance 0 -360 Lab Results - Last 24 hrs: Laboratory Results - last 24 hr 10/01/16 10/01/16 10/02/16 Range/Units 17:08 22:50 04:36 WBC 8.87 (4.0-11.0) K/uL RBC 3.66 L (4.50-5.90) M/uL Hgb 9.8 L (13.0-17.0) g/dL Hct 31.7 L (38.0-50.0) % MCV 86.6 (80.0-98.0) fL MCH 26.8 L (27.0-32.0) pg MCHC 30.9 L (31.0-37.0) g/dL RDW Std Deviation 45.9 (28.0-62.0) fl RDW Coeff of Nancy 15 (11.0-15.0) % Plt Count 501 H (150-400) K/uL MPV 8.70 (7.40-12.00) fL Neut % (Auto) 54.0 (48.0-80.0) % Lymph % (Auto) 25.8 (16.0-40.0) % Stafford % (Auto) 11.8 (0.0-15.0) % Eos % (Auto) 7.9 H (0.0-7.0) % Baso % (Auto) 0.5 (0.0-1.5) % Neut # (Auto) 4.8 (1.4-5.7) K/uL Lymph # (Auto) 2.3 (0.6-2.4) K/uL Stafford # (Auto) 1.1 H (0.0-0.8) K/uL Eos # (Auto) 0.7 (0.0-0.7) K/uL Baso # (Auto) 0.0 (0.0-0.1) K/uL Nucleated RBC % 0.0 /100WBC Nucleated RBCs # 0 K/uL Sodium (136-146) mmol/L Potassium (3.5-5.1) mmol/L Chloride (98-110) mmol/L Carbon Dioxide (21-31) mmol/L BUN (6.0-23.0) mg/dL Creatinine (0.6-1.5) mg/dL Est Cr Clr Drug Dosing Estimated GFR (MDRD) ml/min Glucose (60-110) mg/dL Calcium (8.8-10.8) mg/dL Troponin I < 0.10 < 0.10 (0.0-0.29) NG/ML 10/02/16 Range/Units 04:36 WBC (4.0-11.0) K/uL RBC (4.50-5.90) M/uL Hgb (13.0-17.0) g/dL Hct (38.0-50.0) % MCV (80.0-98.0) fL MCH (27.0-32.0) pg MCHC (31.0-37.0) g/dL RDW Std Deviation (28.0-62.0) fl RDW Coeff of Nancy (11.0-15.0) % Plt Count (150-400) K/uL MPV (7.40-12.00) fL Neut % (Auto) (48.0-80.0) % Lymph % (Auto) (16.0-40.0) % Stafford % (Auto) (0.0-15.0) % Eos % (Auto) (0.0-7.0) % Baso % (Auto) (0.0-1.5) % Neut # (Auto) (1.4-5.7) K/uL Lymph # (Auto) (0.6-2.4) K/uL Stafford # (Auto) (0.0-0.8) K/uL Eos # (Auto) (0.0-0.7) K/uL Baso # (Auto) (0.0-0.1) K/uL Nucleated RBC % /100WBC Nucleated RBCs # K/uL Sodium 137 (136-146) mmol/L Potassium 4.3 (3.5-5.1) mmol/L Chloride 102 (98-110) mmol/L Carbon Dioxide 25 (21-31) mmol/L BUN 15 (6.0-23.0) mg/dL Creatinine 0.9 (0.6-1.5) mg/dL Est Cr Clr Drug Dosing TNP Estimated GFR (MDRD) > 60.0 ml/min Glucose 96 (60-110) mg/dL Calcium 9.0 (8.8-10.8) mg/dL Troponin I (0.0-0.29) NG/ML Med Orders - Current: Current Medications Duloxetine HCl (Cymbalta) 60 mg PO DAILY [facility] Last Admin: 10/02/16 08:29 Dose: 60 mg Gabapentin (Neurontin) 800 mg PO TID [facility] Last Admin: 10/02/16 07:01 Dose: 800 mg Levofloxacin (Levaquin) 750 mg PO Q24H [facility] Last Admin: 10/01/16 17:49 Dose: 750 mg Metoprolol Succinate (Toprol Xl) 100 mg PO BEDTIME [facility] Last Admin: 10/01/16 21:35 Dose: 100 mg Multivitamins/Minerals/Vitamin C (Tab-A-Stephania) 1 tab PO DAILY [facility] Last Admin: 10/02/16 08:29 Dose: 1 tab Omeprazole (Omeprazole) 40 mg PO ACBREAKFAST [facility] Last Admin: 10/02/16 07:01 Dose: 40 mg Ondansetron HCl (Zofran Odt) 4 mg PO Q4H PRN PRN Reason: nausea, able to take PO Oxycodone HCl (Oxycontin) 10 mg PO QPM@2200 [facility] Last Admin: 10/01/16 21:37 Dose: 10 mg Flunisolide [ (Aerospan] 2 Shell) 1 each NASBOTH DAILY PRN PRN Reason: Congestion Rivaroxaban (Xarelto) 15 mg PO BID [facility] Last Admin: 10/02/16 08:29 Dose: 15 mg Senna/Docusate Sodium (Senna Plus) 1 tab PO DAILY PRN PRN Reason: Constipation Simvastatin (Zocor) 20 mg PO BEDTIME [facility] Last Admin: 10/01/16 21:36 Dose: 20 mg Temazepam (Restoril) 15 mg PO BEDTIME PRN PRN Reason: Sleep Triamterene/HCTZ (Maxzide 25-37.5 Mg) 1 each PO DAILY [facility] Last Admin: 10/02/16 08:29 Dose: 1 each Discontinued Medications Famotidine (Pepcid) 20 mg IVPUSH ONETIME ONE Stop: 10/01/16 11:02 Last Admin: 10/01/16 15:06 Dose: Not Given Iopamidol (Isovue Multipack-370 (76%)) 50 ml IVPUSH ONETIME STA Stop: 10/01/16 12:26 Last Admin: 10/01/16 12:26 Dose: 50 ml Ketorolac Tromethamine (Toradol) 30 mg IVPUSH ONETIME ONE Stop: 10/01/16 11:02 Last Admin: 10/01/16 15:06 Dose: Not Given Oxycodone HCl (Oxycontin) 10 mg PO QPM [facility] Last Admin: 10/01/16 19:37 Dose: Not Given - Exam General: Reports: alert, oriented, cooperative HEENT: Reports: Pupils equal, EOMI Neck: Reports: supple, trachea midline Lungs: Reports: Clear to auscultation, Normal respiratory effort Cardiovascular: Reports: Regular Rate, Regular Rhythm Abdomen: Reports: bowel sounds present, soft Back Exam: Reports: Normal Inspection, Full Range of Motion Extremities: Reports: no edema Skin: Reports: warm, dry, intact Neurological: Reports: no new focal deficit Psy/Mental Status: Reports: alert, normal affect, normal mood *Q Meaningful Use (DIS) - VTE *Q VTE Criteria *Q: - Stroke *Q Stroke Criteria *Q: - AMI *Q AMI Criteria *Q: <Martín Carey Fredo - Last Filed: 10/03/16 15:20> - Patient Data Vitals - Most Recent: Last Vital Signs Temp 35.9 C 10/02/16 12:00 Pulse 76 10/02/16 12:00 Resp 22 H 10/02/16 12:00 BP 127/71 10/02/16 12:00 Pulse Ox 99 10/02/16 12:00 Med Orders - Current: Current Medications Discontinued Medications Duloxetine HCl (Cymbalta) 60 mg PO DAILY [facility] Last Admin: 10/02/16 08:29 Dose: 60 mg Famotidine (Pepcid) 20 mg IVPUSH ONETIME ONE Stop: 10/01/16 11:02 Last Admin: 10/01/16 15:06 Dose: Not Given Gabapentin (Neurontin) 800 mg PO TID [facility] Last Admin: 10/02/16 07:01 Dose: 800 mg Iopamidol (Isovue Multipack-370 (76%)) 50 ml IVPUSH ONETIME STA Stop: 10/01/16 12:26 Last Admin: 10/01/16 12:26 Dose: 50 ml Ketorolac Tromethamine (Toradol) 30 mg IVPUSH ONETIME ONE Stop: 10/01/16 11:02 Last Admin: 10/01/16 15:06 Dose: Not Given Levofloxacin (Levaquin) 750 mg PO Q24H [facility] Last Admin: 10/01/16 17:49 Dose: 750 mg Metoprolol Succinate (Toprol Xl) 100 mg PO BEDTIME [facility] Last Admin: 10/01/16 21:35 Dose: 100 mg Multivitamins/Minerals/Vitamin C (Tab-A-Stephania) 1 tab PO DAILY [facility] Last Admin: 10/02/16 08:29 Dose: 1 tab Omeprazole (Omeprazole) 40 mg PO ACBREAKFAST [facility] Last Admin: 10/02/16 07:01 Dose: 40 mg Ondansetron HCl (Zofran Odt) 4 mg PO Q4H PRN PRN Reason: nausea, able to take PO Oxycodone HCl (Oxycontin) 10 mg PO QPM [facility] Last Admin: 10/01/16 19:37 Dose: Not Given Oxycodone HCl (Oxycontin) 10 mg PO QPM@2200 [facility] Last Admin: 10/01/16 21:37 Dose: 10 mg Flunisolide [ (Aerospan] 2 Shell) 1 each NASBOTH DAILY PRN PRN Reason: Congestion Rivaroxaban (Xarelto) 15 mg PO BID [facility] Last Admin: 10/02/16 08:29 Dose: 15 mg Senna/Docusate Sodium (Senna Plus) 1 tab PO DAILY PRN PRN Reason: Constipation Simvastatin (Zocor) 20 mg PO BEDTIME [facility] Last Admin: 10/01/16 21:36 Dose: 20 mg Temazepam (Restoril) 15 mg PO BEDTIME PRN PRN Reason: Sleep Triamterene/HCTZ (Maxzide 25-37.5 Mg) 1 each PO DAILY [facility] Last Admin: 10/02/16 08:29 Dose: 1 each *Q Meaningful Use (DIS) - VTE *Q VTE Criteria *Q: - Stroke *Q Stroke Criteria *Q: - AMI *Q AMI Criteria *Q: - Free Text/Narrative Note: I have examined the patient. I have discussed findings and treatment plan with resident. I agree with the assessment and plan outlined in the following note.
[2016-10-02 12:09] VITALS: BP 127/71
--- NOTE | 2016-10-03 11:16 | CR ---
EXAM DATE: 10/01/16 PATIENT'S AGE: 66 Patient: MARSHA MATTHEW Facility: [place], [place] Site . Site : 1950 Study: XRay Chest [id number]/3/[id number] 12:33:31 PM Ordering Physician: Doctor Euceda Final Report: Indication: Chest pain. Cough. SOB. Technique: PA and lateral. Comparison: 09/23/2016. Findings: No significant change. Lungs low in volume, clear. No pleural effusion. Heart size and pulmonary vasculature within normal limits. Thoracolumbar postop changes with hardware in place and right shoulder arthroplasty. Impression: No significant change. No active disease. Dictated by Tod Aguilar MD @ Oct 01 2016 12:45PM (Electronic Signature) Report Signed by Proxy. ANURAG
--- NOTE | 2016-10-03 13:24 | CT ---
EXAM DATE: 10/01/16 PATIENT'S AGE: 66 Patient: MARSHA MATTHEW Facility: [place], [place] Site . Site : 1950 Study: CT Chest Angio [id number]/[id number] 12:40:35 PM Ordering Physician: Doctor Euceda Final Report: INDICATION: right chest pain CT CHEST WITH CONTRAST TECHNIQUE: Multidetector CT imaging was performed through the chest following intravenous contrast administration. Coronal and sagittal reconstructions were generated. COMPARISON: 09/23/[address] FINDINGS: Lungs and airways: Consolidation in the posterior portion of the right lower lobe, more discrete than on the previous exam. Left lung remains clear aside from minimal dependent atelectasis. Central airways are patent. No hilar lymphadenopathy is identified. Pleura and pleural spaces: New small right pleural effusion. Heart and mediastinum: Normal heart size. No significant pericardial effusion. No significant change in 5 centimeter partially calcified mass arising from the inferior aspect of the left thyroid lobe which mildly displaces the trachea to the right. No definite mediastinal lymphadenopathy. Vascular structures: There has been no significant change in the moderate to large pulmonary embolism in the right lung hilum which branches and extends into right middle lobe and right lower lobe pulmonary arterial branches. No significant change in small pulmonary embolism in the left lower lobe (e.g. image 247 of series 401). No definite new pulmonary emboli are identified. Stable ectasia of the ascending aorta, without obvious dissection. Coronary artery calcifications are again seen. Chest wall and axillae: No mass or axillary lymphadenopathy. Osseous structures: Spinal degenerative changes, as before. Lower thoracic spinal and right shoulder postoperative changes, incompletely imaged. Upper abdomen: Unremarkable. IMPRESSION: 1. No significant change in moderate to large right-sided pulmonary emboli and small left-sided pulmonary embolism. 2. Right lower lobe consolidation, slightly more discrete than on the previous exam, most likely representing a lung infarct. A new small right pleural effusion is noted. 3. Unchanged 5 centimeter left thyroid mass. 4. Nonacute additional findings as detailed above. HENNA DYE MD [employer] Dictated by Juan Pablo Dye MD @ 10/01/2016 1:06:22 PM Dictated by: Juan Pablo Dye MD @ 10/01/2016 13:08:22 (Electronic Signature) Report Signed by Proxy. TCD
--- NOTE | 2016-10-08 15:49 | ECHO ---
EXAM DATE: 10/01/16 PATIENT'S AGE: 66 The echocardiogram report can be seen in this patient's EMR (Electronic Medical Record) in the Reports section. The report has also been scanned into PACS. ANURAG
== END 2016-10-02 12:59 | disposition home or self-care (01) ==
LOC: MW.ED 10:32 → MW.MS 14:39 → UNDOADMOB 14:48 → MW.MS 15:31
PROVIDERS: ADMIT Internal Medicine; ATTEND Internal Medicine
DX: J18.9 Pneumonia, unspecified organism (principal); I10 Essential (primary) hypertension; E78.00 Pure hypercholesterolemia, unspecified; G47.30 Sleep apnea, unspecified; F32.9 Major depressive disorder, single episode, unspecified; E03.9 Hypothyroidism, unspecified; E66.9 Obesity, unspecified; Z68.30 Body mass index [BMI] 30.0-30.9, adult; Z79.899 Other long term (current) drug therapy; K21.9 Gastro-esophageal reflux disease without esophagitis; Z98.890 Other specified postprocedural states; Z96.649 Presence of unspecified artificial hip joint; Z96.659 Presence of unspecified artificial knee joint; R06.02 Shortness of breath
CPT/HCPCS: 36415; 71020; 71275; 80048; 80053; 81001; 82150; 82553; 83690; 83880; 84484; 85025; 85379; 85610; 93005; 93306; 99285; A9270; G0378; Q9967; 99283

== ENCOUNTER 2018-08-21 16:48 | Emergency (ER) | payer MEDICARE, OTHER ==
[2018-08-21] MEDS ORDERED: Diphtheria,Pertussis(Acell),Tetanus Vaccine 0.5 ML Syringe IM ONE (17:23)
--- NOTE | 2018-08-21 17:31 | EDM.PDOC ---
ED HPI GENERAL MEDICAL PROBLEM - General Chief Complaint: Laceration Stated Complaint: RIGHT FINGER INJURY Time Seen by Provider: 08/21/18 16:49 Source of Information: Reports: Patient History Limitations: Reports: No Limitations - History of Present Illness INITIAL COMMENTS - FREE TEXT/NARRATIVE: HISTORY AND PHYSICAL: History of present illness: Patient is a 68-year-old male presents to the ED today with concern of a middle finger right hand laceration that occurred shortly before arrival to the ED. Patient states is not up-to-date on his tetanus vaccine. Patient states he has full range of motion of the hand. Patient states he has applied pressure to the area pretty quickly and has not had much bleeding. Patient states he was working and as gradual and cold move his snowblower and he caught his finger on the blade of the snowblower. Patient denies any other issues or concerns at this time. Patient denies fever, chills, chest pain, shortness of breath, or cough. Denies headache, neck stiff ness, change in vision, syncope, or near syncope. Denies nausea, vomiting, abdominal pain, diarrhea, constipation, or dysuria. Has not noted any blood in urine or stool. Patient has been eating and drinking appropriately. Review of systems: As per history of present illness and below otherwise all systems reviewed and negative. Past medical history: As per history of present illness and as reviewed below otherwise noncontributory. Surgical history: As per history of present illness and as reviewed below otherwise noncontributory. Social history: See social history for further information Family history: As per history of present illness and as reviewed below otherwise noncontributory. Physical exam: General: Patient is alert, oriented, and in no acute distress. Patient sitting comfortably on exam table. HEENT: Atraumatic, normocephalic, pupils equal and reactive bilaterally, negative for conjunctival pallor or scleral icterus, mucous membranes moist, TMs normal bilaterally, throat clear, neck supple, nontender, trachea midline. No drooling or trismus noted. No meningeal signs. No hot potato voice noted. Lungs: Clear to auscultation, breath sounds equal bilaterally, chest nontender. Heart: S1S2, regular rate and rhythm without overt murmur Abdomen: Soft, nondistended, nontender. Negative for masses or hepatosplenomegaly. Negative for costovertebral tenderness. Pelvis: Stable nontender. Genitourinary: Deferred. Rectal: Deferred. Skin: Intact, warm, dry. No lesions or rashes noted. Extremities: negative for cords or calf pain. Neurovascular unremarkable. Patient has a 3 cm superficial proximal laceration on the palmar aspect of the right third digit. No underlying subcutaneous injury or tendon injury. Minimal bleeding. Patient has full range of motion of all digits/wrist of the extremity with capillary refill less than 2 seconds and radial pulses grossly intact. Neuro: Awake, alert, oriented. Cranial nerves II through XII unremarkable. Cerebellum unremarkable. Motor and sensory unremarkable throughout. Exam nonfocal. Notes: Prescription for follow-up with primary care provider. Voices understanding and is agreeable to plan of care. Denies any further questions or concerns at this time. Diagnostics: hand XR Therapeutics: Chief, lidocaine, sutures, bacitracin with sterile dressing Prescription: None Impression: Right finger laceration, 3rd digit Plan: 1. Keep the area clean and dry. Continue to monitor for signs of infection as discussed. Sutures to be removed in 7-10 days. 2. Tylenol and/or ibuprofen as directed and as needed for pain management and discomfort. 3. Please follow-up with your primary care provider as discussed. Return to the ED as needed and as discussed. Definitive disposition and diagnosis as appropriate pending reevaluation and review of above. - Related Data Allergies Allergy/AdvReac Type Severity Reaction Status Date / Time pregabalin [From Lyrica] Allergy Rash Verified 08/21/18 17:54 Home Meds: Home Meds Metoprolol Succinate 100 mg PO BEDTIME 11/09/13 [History] Multivitamin [Multi-Vitamin Daily] 1 tab PO DAILY 11/09/13 [History] Omeprazole [Prilosec] 40 mg PO ACBREAKFAST 11/09/13 [History] Simvastatin [Zocor] 20 mg PO BEDTIME 11/09/13 [History] Triamterene/Hydrochlorothiazid [Triamterene-HCTZ 37.5-25 MG] 1 tab PO DAILY 02/12 [History] Gabapentin [Neurontin] 800 mg PO TID 10/01/16 [History] Aspirin 81 mg PO DAILY 08/21/18 [History] Ferrous Sulfate [Iron] 325 mg PO DAILY 08/21/18 [History] Tamsulosin [Flomax] 0.4 mg PO DAILY 08/21/18 [History] amLODIPine [Norvasc] 2.5 mg PO DAILY 08/21/18 [History] Past Medical History HEENT History: Reports: Hard of Hearing Other HEENT History: wears glasses, keith hearing aids Cardiovascular History: Reports: High Cholesterol, Hypertension Respiratory History: Reports: PE, Sleep Apnea Other Respiratory History: uses CPAP Gastrointestinal History: Reports: GERD Musculoskeletal History: Reports: Back Pain, Chronic, Osteoarthritis Neurological History: Reports: Neuropathy, Peripheral Other Neuro History: bilateral pads of feet Psychiatric History: Reports: Depression Endocrine/Metabolic History: Reports: Hypothyroidism, Obesity/BMI 30+ Hematologic History: Reports: Blood Transfusion(s) Other Hematologic History: states had blood transfusion with one of his back surgeries Oncologic (Cancer) History: Reports: None - Infectious Disease History Infectious Disease History: Reports: Chicken Pox, Measles, Mumps Other Infectious Disease History: pateint questions MRSA history, disagrees that itis on his chart - Past Surgical History Head Surgeries/Procedures: Reports: None Neurological Surgical History: Reports: Lumbar Spine Musculoskeletal Surgical History: Reports: Hip Replacement, Knee Replacement, Shoulder Replacement, Shoulder Surgery, Other (See Below) Other Musculoskeletal Surgeries/Procedures:: bilateral knees, right shoulder, and recent lumbar fusion Social & Family History - Family History Family Medical History: Noncontributory Oncologic: Reports: Breast, Leukemia, Lung, Other (See Below) Other Oncologic Family History: maternal breast CA, paternal lung CA - Caffeine Use Caffeine Use: Reports: Coffee, Tea ED ROS GENERAL - Review of Systems Review Of Systems: ROS reveals no pertinent complaints other than HPI. ED EXAM, SKIN/RASH Exam: See Below (see dictation) ED SKIN PROCEDURES - Laceration/Wound Repair Right Proximal Digit - 3rd (Middle) Lac/Wound length In cm: 3 Appearance: Superficial, Irregular, Clean Distal NVT: Neuro & Vascular Intact, No Tendon Injury Anesthetic Type: Local Local Anesthesia - Lidocaine (Xylocaine): 1% Plain Local Anesthetic Volume: 5cc Skin Prep: Chlorhexidine (Hibiciens) Saline Irrigation (cc's): 20 Exploration/Debridement/Repair: Wound Explored, In a Bloodless Field, Explored to Base, No Foreign Material Found Closed with: Sutures Suture Size: 4-0 # of Sutures: 4 Suture Type: Interrupted Drain Placement: No Sterile Dressing Applied: Nurse Tetanus Status Addressed: Yes Complications: No Course - Vital Signs Last Recorded V/S: Last Vital Signs Temp 36.5 C 08/21/18 17:24 Pulse 72 08/21/18 17:24 Resp 16 08/21/18 17:24 BP 182/94 H 08/21/18 17:24 Pulse Ox 94 L 08/21/18 17:24 - Orders/Labs/Meds Orders: Active Orders 24 hr Category Date Time Status Vaccines to be Administered [RC] PER UNIT ROUTINE Care 08/21/18 17:24 Active Hand Comp Min 3V Rt [CR] Stat Exams 08/21/18 16:49 Taken Meds: Medications Discontinued Medications Generic Name Dose Route Start Last Admin Trade Name Freq PRN Reason Stop Dose Admin Diphtheria/Tetanus/Acell Pertussis 0.5 ml 08/21/18 17:23 08/21/18 17:55 Adacel IM 08/21/18 17:24 0.5 ml .ONCE ONE Administration Lidocaine HCl 5 ml 08/21/18 17:24 08/21/18 17:54 Xylocaine-Mpf 1% INJECT 08/21/18 17:25 5 ml ONETIME ONE Administration Departure - Departure Time of Disposition: 18:06 Disposition: Home, Self-Care 01 Clinical Impression: Finger laceration Qualifiers: Encounter type: initial encounter Finger: middle finger Damage to nail status: without damage Foreign body presence: without foreign body Laterality: right Qualified Code(s): S61.212A - Laceration without foreign body of right middle finger without damage to nail, initial encounter - Discharge Information Instructions: Laceration Care, Adult, Sutured Wound Care, [id number] Referrals: Jewel Kowalski MD [Primary Care Provider] - Forms: ED Department Discharge Additional Instructions: The following information is given to patients seen in the emergency department who are being discharged to home. This information is to outline your options for follow-up care. We provide all patients seen in our emergency department with a follow-up referral. The need for follow-up, as well as the timing and circumstances, are variable depending upon the specifics of your emergency department visit. If you don't have a primary care physician on staff, we will provide you with a referral. We always advise you to contact your personal physician following an emergency department visit to inform them of the circumstance of the visit and for follow-up with them and/or the need for any referrals to a consulting specialist. The emergency department will also refer you to a specialist when appropriate. This referral assures that you have the opportunity for follow-up care with a specialist. All of these measure are taken in an effort to provide you with optimal care, which includes your follow-up. Under all circumstances we always encourage you to contact your private physician who remains a resource for coordinating your care. When calling for follow-up care, please make the office aware that this follow-up is from your recent emergency room visit. If for any reason you are refused follow-up, please contact the [facility] Emergency Department at and asked to speak to the emergency department charge nurse. [facility] [address] [place] [id number] [place] [address] 1. Keep the area clean and dry. Continue to monitor for signs of infection as discussed. Sutures to be removed in 7-10 days. 2. Tylenol and/or ibuprofen as directed and as needed for pain management and discomfort. 3. Please follow-up with your primary care provider as discussed. Return to the ED as needed and as discussed. - My Orders Last 24 Hours: My Active Orders 08/21/18 16:49 Hand Comp Min 3V Rt [CR] Stat 08/21/18 17:24 Vaccines to be Administered [RC] PER UNIT ROUTINE - Assessment/Plan Last 24 Hours: My Active Orders 08/21/18 16:49 Hand Comp Min 3V Rt [CR] Stat 08/21/18 17:24 Vaccines to be Administered [RC] PER UNIT ROUTINE
[2018-08-21] MEDS ORDERED: Bacitracin Oint 1 GM U/D Packet TOP ONE (18:05)
--- NOTE | 2018-08-21 18:05 | CR ---
INDICATION: laceration to 3rd digit, possible FB TECHNIQUE: Right hand 3 views. COMPARISON: None. FINDINGS: Bones: Alignment is normal. No fractures or bone lesions. Joint spaces: Unremarkable. Soft tissues: Unremarkable. IMPRESSION: Unremarkable right hand. Dictated by: Jewel Linares MD @ 08/21/2018 18:04:35 (Electronically Signed)
[2018-08-21 18:26] VITALS: BP 168/88
== END 2018-08-21 18:32 | disposition home or self-care (01) ==
LOC: MW.ED 16:48
DX: S61.212A Laceration without foreign body of right middle finger without damage to nail, initial encounter (principal); Z23 Encounter for immunization; I10 Essential (primary) hypertension; E78.00 Pure hypercholesterolemia, unspecified; K21.9 Gastro-esophageal reflux disease without esophagitis; E03.9 Hypothyroidism, unspecified; Z79.82 Long term (current) use of aspirin; Z79.899 Other long term (current) drug therapy; Z88.8 Allergy status to other drugs, medicaments and biological substances; W26.8XXA Contact with other sharp object(s), not elsewhere classified, initial encounter; Y99.0 Civilian activity done for income or pay
CPT/HCPCS: 12002; 73130; 90471; 90715; 99283; J2001

== ENCOUNTER 2018-11-07 13:22 | Emergency (ER) | payer OTHER ==
--- NOTE | 2018-11-07 13:27 | EDM.PDOC ---
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 There is bulge in right his arm that is tender. He denies any numbness or tingling in his upper extremity and denies any other injuries. Patient had shoulder replacement surgery done in [facility] by Dr. Chow wishes to follow- up with him. Review of systems: As per history of present illness and below otherwise all systems reviewed and negative. Past medical history: As per history of present illness and as reviewed below otherwise noncontributory. Surgical history: As per history of present illness and as reviewed below otherwise noncontributory. Social history: No reported history of drug or alcohol abuse. Family history: As per history of present illness and as reviewed below otherwise noncontributory. Physical exam: General: Well developed, well nourished in NAD HEENT: Atraumatic, normocephalic, pupils reactive, negative for conjunctival pallor or scleral icterus, mucous membranes moist, throat clear, neck supple, nontender, trachea midline. Lungs: Clear to auscultation, breath sounds equal bilaterally, chest nontender. Heart: S1S2, regular, negative for clicks, rubs, or JVD. Abdomen: NABS, Soft, nondistended, nontender. Negative for masses or hepatosplenomegaly. Negative for costovertebral tenderness. Pelvis: Stable nontender. Genitourinary: Deferred. Rectal: Deferred. Extremities: Left upper arm with tenderness bulge of bicep, no hematoma, distal pulses are palpable sensations intact and is able to move fingers and wrist without difficulty. negative for cords or calf pain. Neurovascular unremarkable. Neuro: Awake, alert, oriented. Cranial nerves II through XII unremarkable. Cerebellum unremarkable. Motor and sensory unremarkable throughout. Exam nonfocal. Skin:warm and dry Diagnostics: None Therapeutics: Arm sling, declined pain meds ED Course: Stable Impression: Right bicep tendon tear Prescriptions: Tramadol Plan: Take meds as directed, follow up with your primary care physician, return to ER if symptoms worsen or change. Definitive disposition and diagnosis as appropriate pending reevaluation and review of above. - Related Data Allergies Allergy/AdvReac Type Severity Reaction Status Date / Time pregabalin [From Lyrica] Allergy Rash Verified 11/07/18 13:35 Home Meds: Home Meds Metoprolol Succinate 100 mg PO BEDTIME 11/09/13 [History] Multivitamin [Multi-Vitamin Daily] 1 tab PO DAILY 11/09/13 [History] Omeprazole [Prilosec] 40 mg PO ACBREAKFAST 11/09/13 [History] Simvastatin [Zocor] 20 mg PO BEDTIME 11/09/13 [History] Triamterene/Hydrochlorothiazid [Triamterene-HCTZ 37.5-25 MG] 1 tab PO DAILY 02/12 [History] Gabapentin [Neurontin] 800 mg PO TID 10/01/16 [History] Aspirin 81 mg PO DAILY 08/21/18 [History] Ferrous Sulfate [Iron] 325 mg PO DAILY 08/21/18 [History] Tamsulosin [Flomax] 0.4 mg PO DAILY 08/21/18 [History] amLODIPine [Norvasc] 2.5 mg PO DAILY 08/21/18 [History] traMADol HCl [Tramadol HCl] 50 mg PO Q6H PRN #20 tablet 11/07/18 [Rx] Past Medical History HEENT History: Reports: Hard of Hearing Other HEENT History: wears glasses, keith hearing aids Cardiovascular History: Reports: High Cholesterol, Hypertension Respiratory History: Reports: PE, Sleep Apnea Other Respiratory History: uses CPAP Gastrointestinal History: Reports: GERD Musculoskeletal History: Reports: Back Pain, Chronic, Osteoarthritis Neurological History: Reports: Neuropathy, Peripheral Other Neuro History: bilateral pads of feet Psychiatric History: Reports: Depression Endocrine/Metabolic History: Reports: Hypothyroidism, Obesity/BMI 30+ Hematologic History: Reports: Blood Transfusion(s) Other Hematologic History: states had blood transfusion with one of his back surgeries Oncologic (Cancer) History: Reports: None - Infectious Disease History Infectious Disease History: Reports: Chicken Pox, Measles, Mumps Other Infectious Disease History: pateint questions MRSA history, disagrees that itis on his chart - Past Surgical History Head Surgeries/Procedures: Reports: None Neurological Surgical History: Reports: Lumbar Spine Musculoskeletal Surgical History: Reports: Hip Replacement, Knee Replacement, Shoulder Replacement, Shoulder Surgery, Other (See Below) Other Musculoskeletal Surgeries/Procedures:: bilateral knees, right shoulder, and recent lumbar fusion Social & Family History - Family History Family Medical History: Noncontributory Oncologic: Reports: Breast, Leukemia, Lung, Other (See Below) Other Oncologic Family History: maternal breast CA, paternal lung CA - Caffeine Use Caffeine Use: Reports: Coffee, Tea Review of Systems - Review of Systems Review Of Systems: See Below ED EXAM, GENERAL - Physical Exam Exam: See Below Course - Vital Signs Last Recorded V/S: Last Vital Signs Temp 97.4 F 11/07/18 13:34 Pulse 95 11/07/18 13:34 Resp 18 11/07/18 13:34 BP 156/75 H 11/07/18 13:34 Pulse Ox 96 11/07/18 13:34 Departure - Departure Time of Disposition: 13:36 Disposition: Home, Self-Care 01 Condition: Good Clinical Impression: Injury of tendon of biceps - Discharge Information *PRESCRIPTION DRUG MONITORING PROGRAM REVIEWED*: No *COPY OF PRESCRIPTION DRUG MONITORING REPORT IN PATIENT [place]: No Prescriptions: traMADol HCl [Tramadol HCl] 50 mg PO Q6H PRN #20 tablet PRN Reason: Pain Referrals: PCP,Unknown [Primary Care Provider] - Forms: ED Department Discharge Additional Instructions: The following information is given to patients seen in the emergency department who are being discharged to home. This information is to outline your options for follow-up care. We provide all patients seen in our emergency department with a follow-up referral. The need for follow-up, as well as the timing and circumstances, are variable depending upon the specifics of your emergency department visit. If you don't have a primary care physician on staff, we will provide you with a referral. We always advise you to contact your personal physician following an emergency department visit to inform them of the circumstance of the visit and for follow-up with them and/or the need for any referrals to a consulting specialist. The emergency department will also refer you to a specialist when appropriate. This referral assures that you have the opportunity for follow-up care with a specialist. All of these measure are taken in an effort to provide you with optimal care, which includes your follow-up. Under all circumstances we always encourage you to contact your private physician who remains a resource for coordinating your care. When calling for follow-up care, please make the office aware that this follow-up is from your recent emergency room visit. If for any reason you are refused follow-up, please contact the [facility] Emergency Department at and asked to speak to the emergency department charge nurse. Take meds as directed, follow up with your primary care physician, return to ER if symptoms worsen or change. [facility] [address] [place] [id number]
[2018-11-07 13:35] VITALS: BP 156/75; PULSE 95
== END 2018-11-07 13:55 | disposition home or self-care (01) ==
LOC: MW.ED 13:22
DX: S46.211A Strain of muscle, fascia and tendon of other parts of biceps, right arm, initial encounter (principal); K21.9 Gastro-esophageal reflux disease without esophagitis; E78.00 Pure hypercholesterolemia, unspecified; I10 Essential (primary) hypertension; Z79.899 Other long term (current) drug therapy; Z88.8 Allergy status to other drugs, medicaments and biological substances; Z79.82 Long term (current) use of aspirin; X50.0XXA Overexertion from strenuous movement or load, initial encounter
CPT/HCPCS: 99282; 99283

== ENCOUNTER 2019-03-06 07:17 | Day surgery (SDC) | payer OTHER, MEDICARE ==
[2019-03-06] MEDS ORDERED: Bupivacaine 25%/EPINEPHrine/PF 30 ML ONE (07:23)
--- NOTE | 2019-03-06 08:04 | PCM.PREANE ---
Preanesthetic Assessment - Anesthesia/Transfusion/Family Hx Anesthesia History: Prior Anesthesia Without Reaction Other Type of Anesthesia Reaction Comment: N&V with one of his back surgeries, no problems recently Family History of Anesthesia Reaction: No Transfusion History: Prior Transfusion Without Reaction - Review of Systems General: No Symptoms Pulmonary: Other (SURJIT) Gastrointestinal: No Symptoms Neurological: No Symptoms Other: Reports: None - Physical Assessment NPO Status Date: 03/05/19 Vital Signs: Last Vital Signs Temp 97.5 F 03/06/19 07:33 Pulse 65 03/06/19 07:33 Resp 16 03/06/19 07:33 BP 164/72 H 03/06/19 07:33 Pulse Ox 97 03/06/19 07:33 Height: 5 ft 7 in Weight: 146.964 kg ASA Class: 3 Mental Status: Alert & Oriented x3 Airway Class: Mallampati = 2 Dentition: Reports: Normal Dentition ROM/Head Extension: Full Lungs: Clear to Auscultation, Normal Respiratory Effort Cardiovascular: Regular Rate, Regular Rhythm - Allergies Allergies/Adverse Reactions: Allergies Allergy/AdvReac Type Severity Reaction Status Date / Time pregabalin [From Lyrica] Allergy Rash Verified 03/05/19 13:38 - Blood Blood Available: No - Anesthesia Plan Pre-Op Medication Ordered: None - Acknowledgements Anesthesia Type Planned: MAC Pt an Appropriate Candidate for the Planned Anesthesia: Yes Alternatives and Risks of Anesthesia Discussed w Pt/Guardian: Yes Pt/Guardian Understands and Agrees with Anesthesia Plan: Yes Additional Comments: PMH: super morbid obesity, surjit-uses cpap, htn, hld, chr pain synd - on gabipentin PLAN: MAC using primarily ketamine and propofol (minimize use of benzo and opioid) PreAnesthesia Questionnaire HEENT History: Reports: Hard of Hearing Other HEENT History: wears glasses, Cardiovascular History: Reports: High Cholesterol, Hypertension Respiratory History: Reports: PE, Sleep Apnea Other Respiratory History: uses CPAP, PE 2 years ago Gastrointestinal History: Reports: GERD Genitourinary History: Reports: None Musculoskeletal History: Reports: Back Pain, Chronic, Fracture, Neck Pain, Chronic, Osteoarthritis Other Musculoskeletal History: hx fx left foot Neurological History: Reports: Neuropathy, Peripheral Psychiatric History: Reports: Depression Endocrine/Metabolic History: Reports: Obesity/BMI 30+ Hematologic History: Reports: Blood Transfusion(s) Other Hematologic History: states had blood transfusion with one of his back surgeries & also autotranfusions Immunologic History: Reports: None Oncologic (Cancer) History: Reports: None Dermatologic History: Reports: Psoriasis - Infectious Disease History Infectious Disease History: Reports: Chicken Pox, Measles, Mumps Other Infectious Disease History: pateint questions MRSA history, disagrees that itis on his chart - Past Surgical History Head Surgeries/Procedures: Reports: None HEENT Surgical History: Reports: Adenoidectomy, Tonsillectomy Cardiovascular Surgical History: Reports: None Respiratory Surgical History: Reports: None GI Surgical History: Reports: Colonoscopy Male Surgical History: Reports: None Endocrine Surgical History: Reports: Thyroidectomy Other Endocrine Surgeries/Procedures: partial thyroidectomy Neurological Surgical History: Reports: Lumbar Spine Other Neurological Surgeries/Procedures: back surgery x9, Musculoskeletal Surgical History: Reports: Hip Replacement, Knee Replacement, Shoulder Replacement, Shoulder Surgery, Other (See Below) Other Musculoskeletal Surgeries/Procedures:: bilateral knees, right shoulder, left foot surgery, rt hip replacement with revision, rt bicep tendon repair Oncologic Surgical History: Reports: None Dermatological Surgical History: Reports: None, Skin Biopsy - SUBSTANCE USE Smoking Status *Q: Former Smoker Tobacco Use Within Last Twelve Months: No Recreational Drug Use History: No - HOME MEDS Home Medications: Home Meds Metoprolol Succinate 100 mg PO BEDTIME 11/09/13 [History] Omeprazole [Prilosec] 2 tab PO ACBREAKFAST 11/09/13 [History] Simvastatin [Zocor] 20 mg PO BEDTIME 11/09/13 [History] Tamsulosin [Flomax] 0.4 mg PO DAILY 08/21/18 [History] amLODIPine [Norvasc] 10 mg PO DAILY 08/21/18 [History] DULoxetine HCl [Cymbalta] 60 mg PO DAILY 03/05/19 [History] Fluticasone Propionate [Allergy Relief] 1 spray NASBOTH ASDIRECTED PRN 03/05/19 [History] Gabapentin [Neurontin] 900 mg PO TID 03/05/19 [History] Triamterene/Hydrochlorothiazid [Triamterene-HCTZ 37.5-25 MG] 1 tab PO DAILY 08/17 [History] - CURRENT (IN HOUSE) MEDS Current Meds: Current Medications Discontinued Medications Bupivacaine HCl/Epinephrine Bitart (Sensorc Mpf 0.25%-Epi [id number]) Confirm Administered Dose 30 mls @ as directed .ROUTE .STK-MED ONE Stop: 03/06/19 07:24
[2019-03-06] MEDS ORDERED: Lidocaine 2% 5 ML SDV ONE (08:24)
[2019-03-06] MEDS ORDERED: Propofol 200 MG/20 ML SDV ONE (08:24)
[2019-03-06] MEDS ORDERED: Ketamine 500 mg/10 ML MDV ONE (08:30)
[2019-03-06] MEDS ORDERED: Sodium Chloride 0.9% 20 ML ONE (09:10)
[2019-03-06] MEDS ORDERED: ceFAZolin 1 GM Vial ONE (09:10)
[2019-03-06] MEDS ORDERED: Octyl 2-Cyanoacrylate 1 Tube ONE (09:33)
--- NOTE | 2019-03-06 10:07 | PCM.OPNOTE ---
- General Post-Op/Procedure Note Date of Surgery/Procedure: 03/06/19 Operative Procedure(s): excisional bx scalp lesion Findings: scalp lesion; fish mouth excision, 3.1 cm w at least 5 mm margin; [id number] Pre Op Diagnosis: scalp lesion Post-Op Diagnosis: Same Anesthesia Technique: Moderate Sedation Primary Surgeon: Salazar Kimball Pathology: sent Complications: None Condition: Good
--- NOTE | 2019-03-06 10:17 | PCM48HPAN ---
Post Anesthesia Note - EVALUATION WITHIN 48HRS OF ANESTHETIC Vital Signs in Normal Range: Yes Patient Participated in Evaluation: Yes Respiratory Function Stable: Yes Airway Patent: Yes Cardiovascular Function Stable: Yes Hydration Status Stable: Yes Pain Control Satisfactory: Yes Nausea and Vomiting Control Satisfactory: Yes Mental Status Recovered: Yes Vital Signs: Last Vital Signs Temp 97.5 F 03/06/19 07:33 Pulse 65 03/06/19 07:33 Resp 16 03/06/19 07:33 BP 164/72 H 03/06/19 07:33 Pulse Ox 97 03/06/19 07:33 - COMMENTS/OBSERVATIONS Free Text/Narrative:: bipassed phase 1
--- NOTE | 2019-03-06 10:42 | OR ---
SURGEON: Salazar Kimball MD DATE OF PROCEDURE: 03/06/2019 PREOPERATIVE DIAGNOSIS: Pigmented scalp lesion. POSTOPERATIVE DIAGNOSIS: Pigmented scalp lesion. PROCEDURE PERFORMED: Excisional biopsy. PRIMARY SURGEON: Salazar Kimball MD. COMPLICATIONS: None. FINDING: A pigmented lesion on the top of the patient's forehead, was excised, 3.1 x 2 cm with a margin at least 5 mm. DESCRIPTION OF PROCEDURE: The patient was taken to the operating room and placed in the supine position. The patient's scalp was prepped and draped in a sterile fashion, the patient's forehead, and the lesion was on top of the head and the area was marked. It was a pigmented lesion with raised border, asymmetry. Time-out was being called, patient identified, procedure identified, antibiotic given. Procedure then started. Using a 15 blade, a fish-mouth incision was made from anterior to the back, about 3.1 x 2 cm, excised down to the periosteum. Specimen is labeled with front with a short stitch and back with a long stitch, sent for pathology. Good hemostasis achieved by using electrocautery. The wound was then closed with 3-0 and 2-0 Ethilon simple interrupted baseball stitch and followed by appropriate dressing. The patient was awakened, transferred to recovery in hemodynamically stable condition. The patient tolerated the procedure well. There were no intraoperative complications. Dr. Kimball was present through the whole procedure. MICHELLE / JENNIFER /[id number]
[2019-03-06 10:47] VITALS: BP 148/68; PULSE 68
== END 2019-03-06 10:41 | disposition home or self-care (01) ==
LOC: MW.SDS 07:17
PROVIDERS: ATTEND Surgery
DX: L57.0 Actinic keratosis (principal); I10 Essential (primary) hypertension; E78.00 Pure hypercholesterolemia, unspecified; E78.5 Hyperlipidemia, unspecified; G89.4 Chronic pain syndrome; M54.9 Dorsalgia, unspecified; K21.9 Gastro-esophageal reflux disease without esophagitis; G47.33 Obstructive sleep apnea (adult) (pediatric); E02 Subclinical iodine-deficiency hypothyroidism; M19.011 Primary osteoarthritis, right shoulder; L40.9 Psoriasis, unspecified; F17.210 Nicotine dependence, cigarettes, uncomplicated; E66.01 Morbid (severe) obesity due to excess calories; Z68.43 Body mass index [BMI] 50.0-59.9, adult; Z79.82 Long term (current) use of aspirin; Z79.51 Long term (current) use of inhaled steroids; Z79.899 Other long term (current) drug therapy; Z88.8 Allergy status to other drugs, medicaments and biological substances; Z86.711 Personal history of pulmonary embolism; Z99.89 Dependence on other enabling machines and devices
CPT/HCPCS: 11444; A9270; J0690; J2001; J2704

== ENCOUNTER 2021-05-02 13:10 | Emergency (ER) | payer OTHER, MEDICARE ==
[2021-05-02] MEDS ORDERED: Sodium Chloride 0.9% 1,000 ML IV ONE (13:19)
[2021-05-02] MEDS ORDERED: Ondansetron 4 MG/2 ML SDV IVPUSH ONE (13:28)
[2021-05-02] MEDS ORDERED: Morphine 4 MG/ML VIAL IVPUSH ONE (13:28)
[2021-05-02 14:22] LABS: CARBON DIOXIDE,CO2 26.7 mmol/L (21.0-32.0)
[2021-05-02 14:28] LABS: CORONAVIRUS COVID-19 NAA NEGATIVE (NEGATIVE); INFLUENZA A NAA NEGATIVE (NEGATIVE); INFLUENZA B NAA NEGATIVE (NEGATIVE)
[2021-05-02] MEDS ORDERED: HYDROmorphone 1 MG/ML Syringe IVPUSH ONE (15:31)
[2021-05-02 16:14] VITALS: BP 137/65; PULSE 96
== END 2021-05-02 16:19 | disposition home or self-care (01) ==
LOC: MW.ED 13:10
DX: N28.9 Disorder of kidney and ureter, unspecified (principal); E78.00 Pure hypercholesterolemia, unspecified; I10 Essential (primary) hypertension; K21.9 Gastro-esophageal reflux disease without esophagitis; E66.9 Obesity, unspecified; Z68.42 Body mass index [BMI] 45.0-49.9, adult; Z88.8 Allergy status to other drugs, medicaments and biological substances; Z79.899 Other long term (current) drug therapy; Z20.822 Contact with and (suspected) exposure to COVID-19
CPT/HCPCS: 0240U; 36415; 74176; 80053; 81001; 83690; 85025; 96374; 96375; 99284; J1170; J2270; J2405; J7030

== ENCOUNTER 2021-10-26 20:46 | Observation (INO) | payer MEDICARE, OTHER ==
[2021-10-26] MEDS ORDERED: Aspirin 81 MG Tab.Chew PO ONE (20:56)
[2021-10-26 22:04] LABS: CARBON DIOXIDE,CO2 21.5 mmol/L (21.0-32.0)
[2021-10-27] MEDS ORDERED: Rivaroxaban 10 MG Tab PO ONE (00:03)
[2021-10-27] MEDS ORDERED: Morphine 4 MG/ML VIAL IVPUSH ONE (00:28)
[2021-10-27] MEDS ORDERED: Rivaroxaban 15 MG Tab PO SCH ×3 (09:00→17:30)
[2021-10-27] MEDS ORDERED: Acetaminophen 325 MG Tab PO PRN (09:29)
[2021-10-27] MEDS ORDERED: Docusate Sodium 100 MG Cap PO PRN (09:29)
[2021-10-27] MEDS ORDERED: Ondansetron 4 MG/2 ML SDV IVPUSH PRN (09:29)
[2021-10-27 13:01] VITALS: BP 148/66; PULSE 70
[2021-10-27] MEDS ORDERED: Acetaminophen/oxyCODONE 325-5 MG Tab PO PRN (13:39)
[2021-10-27] MEDS ORDERED: Tamsulosin 0.4 MG Cap.ER PO SCH (13:45)
[2021-10-27] MEDS ORDERED: DULoxetine 60 MG Cap PO SCH (13:45)
[2021-10-27] MEDS ORDERED: Hydrochlorothiazide/Triamterene 25-37.5 Tab PO SCH (13:45)
[2021-10-27] MEDS ORDERED: Rosuvastatin 10 MG Tab PO SCH (13:45)
[2021-10-27] MEDS ORDERED: Gabapentin 300 MG Cap PO SCH (14:00)
[2021-10-27] MEDS ORDERED: Metoprolol Succinate 100 MG Tab.ER PO SCH (21:00)
[2021-10-28] MEDS ORDERED: Omeprazole 20 MG Cap.CR PO SCH (07:30)
[2021-10-28] MEDS ORDERED: Lisinopril 10 MG Tab PO SCH (09:00)
[2021-10-28] MEDS ORDERED: amLODIPine 5 MG Tab PO SCH (09:00)
[2021-10-28] MEDS ORDERED: Rivaroxaban 15 MG Tab PO SCH (17:30)
== END 2021-10-27 17:05 | disposition home or self-care (01) ==
LOC: MW.ED 20:46 → MW.MS 10-27 01:15
PROVIDERS: ADMIT Internal Medicine; ATTEND Internal Medicine
DX: I26.99 Other pulmonary embolism without acute cor pulmonale (principal); I10 Essential (primary) hypertension; E78.5 Hyperlipidemia, unspecified; G47.33 Obstructive sleep apnea (adult) (pediatric); E66.9 Obesity, unspecified; E78.00 Pure hypercholesterolemia, unspecified; K21.9 Gastro-esophageal reflux disease without esophagitis; G47.30 Sleep apnea, unspecified; E11.42 Type 2 diabetes mellitus with diabetic polyneuropathy; F32.A Depression, unspecified; Z98.890 Other specified postprocedural states; Z87.891 Personal history of nicotine dependence; Z88.8 Allergy status to other drugs, medicaments and biological substances; Z79.899 Other long term (current) drug therapy; Z20.822 Contact with and (suspected) exposure to COVID-19
CPT/HCPCS: 36415; 71045; 71275; 80053; 83735; 84484; 85025; 85379; 87635; 93005; 93970; 96374; 99285; A9270; J2270; G0378; U0002

== ENCOUNTER 2021-11-02 21:39 | Emergency (ER) | payer MEDICARE, OTHER ==
[2021-11-02] MEDS ORDERED: Sodium Chloride 0.9% 2.5 ML Syringe FLUSH PRN (21:41)
[2021-11-02] MEDS ORDERED: Sodium Chloride 0.9% 10 ML Syringe FLUSH PRN (21:41)
[2021-11-02 22:29] LABS: CARBON DIOXIDE,CO2 27.9 mmol/L (21.0-32.0); POTASSIUM,K 3.8 mmol/L (3.5-5.1)
[2021-11-02] MEDS ORDERED: Aspirin 81 MG Tab.Chew PO STA (22:55)
[2021-11-03 02:42] VITALS: BP 141/65; PULSE 75
== END 2021-11-03 02:19 ==
LOC: MW.ED 21:39
DX: U07.1 COVID-19 (principal); I21.4 Non-ST elevation (NSTEMI) myocardial infarction; I24.9 Acute ischemic heart disease, unspecified; I44.7 Left bundle-branch block, unspecified; E78.00 Pure hypercholesterolemia, unspecified; I10 Essential (primary) hypertension; E66.01 Morbid (severe) obesity due to excess calories; Z68.30 Body mass index [BMI] 30.0-30.9, adult; Z88.8 Allergy status to other drugs, medicaments and biological substances; Z79.899 Other long term (current) drug therapy
CPT/HCPCS: 36415; 71045; 80053; 84484; 85025; 85610; 85730; 93005; 99285; A9270; J3490; U0002; 93010; 99291

== ENCOUNTER 2021-11-17 08:24 | Emergency (ER) | payer OTHER, MEDICARE ==
[2021-11-17 09:30] LABS: CARBON DIOXIDE,CO2 25.3 mmol/L (21.0-32.0); POTASSIUM,K 3.9 mmol/L (3.5-5.1)
[2021-11-17 12:29] VITALS: PULSE 56
[2021-11-17 13:21] VITALS: BP 136/60
== END 2021-11-17 13:27 | disposition home or self-care (01) ==
LOC: MW.ED 08:24
DX: R07.89 Other chest pain (principal); E78.00 Pure hypercholesterolemia, unspecified; I10 Essential (primary) hypertension; M19.90 Unspecified osteoarthritis, unspecified site; E66.9 Obesity, unspecified; Z68.42 Body mass index [BMI] 45.0-49.9, adult; Z88.8 Allergy status to other drugs, medicaments and biological substances; Z79.899 Other long term (current) drug therapy; Z79.01 Long term (current) use of anticoagulants; Z20.822 Contact with and (suspected) exposure to COVID-19
CPT/HCPCS: 36415; 74022; 74022-26; 80053; 83880; 84443; 84484; 85025; 93005; 93010; 93306; 99285; U0002

== ENCOUNTER 2022-06-11 12:48 | Inpatient (IN) | payer OTHER, MEDICARE ==
[2022-06-11] MEDS ORDERED: Sodium Chloride 0.9% 2.5 ML Syringe FLUSH PRN (12:58)
[2022-06-11] MEDS ORDERED: Sodium Chloride 0.9% 10 ML Syringe FLUSH PRN (12:58)
[2022-06-11 14:01] LABS: CARBON DIOXIDE,CO2 20.7 mmol/L (21.0-32.0); POTASSIUM,K 3.6 mmol/L (3.5-5.1)
[2022-06-11 14:23] LABS: CORONAVIRUS COVID-19 NAA NEGATIVE (NEGATIVE); INFLUENZA A NAA NEGATIVE (NEGATIVE); INFLUENZA B NAA NEGATIVE (NEGATIVE)
[2022-06-11] MEDS ORDERED: Furosemide 40 MG/4 ML VIAL IVPUSH STA (15:22)
[2022-06-11] MEDS: Potassium Chloride 20 MEQ Tab.ER PO STA ×2 (15:37→15:43)
[2022-06-11] MEDS ORDERED: Potassium Chloride 10 MEQ Tab.ER PO ONE (15:40)
[2022-06-11] MEDS ORDERED: Temazepam 15 MG Cap PO PRN (17:12)
[2022-06-11] MEDS ORDERED: Acetaminophen 325 MG Tab PO PRN (17:12)
[2022-06-11] MEDS ORDERED: Non-Formulary Medication 1 Each (Acetaminophen 650 MG Tablet.Er) PO PRN (17:25)
[2022-06-11] MEDS: Rosuvastatin 10 MG Tab PO SCH (20:53)
[2022-06-11] MEDS: Gabapentin 100 MG Cap PO SCH (20:53)
[2022-06-11] MEDS: Metoprolol Tartrate 25 MG Tab PO SCH (20:53)
[2022-06-11] MEDS ORDERED: Fluticasone NASAL Spray 16 GM Bottle NASBOTH PRN (21:00)
[2022-06-12] MEDS: Albuterol 8 GM Inhaler INH PRN (02:43)
[2022-06-12 06:45] LABS: CARBON DIOXIDE,CO2 20.5 mmol/L (21.0-32.0); POTASSIUM,K 3.4 mmol/L (3.5-5.1)
[2022-06-12] MEDS: Levothyroxine 25 MCG Tab PO SCH (06:50)
[2022-06-12] MEDS ORDERED: Potassium Chloride 20 MEQ Tab.ER PO SCH (09:00)
[2022-06-12] MEDS: Amiodarone 200 MG Tab PO SCH (09:11)
[2022-06-12] MEDS: Metoprolol Tartrate 25 MG Tab PO SCH ×4 (09:11→22:33)
[2022-06-12] MEDS: Pantoprazole 40 MG Tab.CR PO SCH (09:11)
[2022-06-12] MEDS: Tamsulosin 0.4 MG Cap.ER PO SCH (09:12)
[2022-06-12] MEDS: Venlafaxine 37.5 MG Cap.ER PO SCH (09:12)
[2022-06-12] MEDS ORDERED: Furosemide 100 MG/10 ML SDV IVPUSH ONE (10:02)
[2022-06-12] MEDS: Potassium Chloride 10 MEQ Tab.ER PO SCH (10:14)
[2022-06-12] MEDS ORDERED: Potassium Chloride 10 MEQ Tab.ER PO ONE (10:30)
[2022-06-12] MEDS: Midodrine 5 MG Tab PO SCH ×2 (10:42→17:10)
[2022-06-12] MEDS: Clopidogrel 75 MG Tab PO SCH (10:42)
[2022-06-12] MEDS: Fluticasone/Salmeterol 250-50 MCG Inhalation Powder 14/Diskus INH SCH ×2 (10:49→20:49)
[2022-06-12] MEDS ORDERED: Warfarin 2.5 MG, Warfarin 2 MG PO SCH ×2 (14:00)
[2022-06-12] MEDS: Warfarin Sliding Scale PO SCH (14:25)
[2022-06-12] MEDS ORDERED: VANCOmycin 2 GM/400 ML 2 GM in Premix Bag 1 BAG IV ONE ×2 (16:30→18:00)
[2022-06-12] MEDS ORDERED: cefTRIAXone 2 GM in Sodium Chloride 0.9% 50 ML IV ONE (16:30)
[2022-06-12] MEDS ORDERED: cefTRIAXone 2 GM/50 ML BAG IV ONE (17:30)
[2022-06-12] MEDS: Rosuvastatin 10 MG Tab PO SCH (20:49)
[2022-06-12] MEDS: Gabapentin 100 MG Cap PO SCH (20:49)
[2022-06-13] MEDS: Midodrine 5 MG Tab PO SCH ×3 (06:33→17:46)
[2022-06-13] MEDS: Levothyroxine 25 MCG Tab PO SCH (06:34)
[2022-06-13] MEDS: Metoprolol Tartrate 25 MG Tab PO SCH ×3 (06:34→21:36)
[2022-06-13 07:25] LABS: CARBON DIOXIDE,CO2 18.7 mmol/L (21.0-32.0); POTASSIUM,K 3.5 mmol/L (3.5-5.1)
[2022-06-13] MEDS: Venlafaxine 37.5 MG Cap.ER PO SCH (09:31)
[2022-06-13] MEDS: Pantoprazole 40 MG Tab.CR PO SCH (09:31)
[2022-06-13] MEDS: Tamsulosin 0.4 MG Cap.ER PO SCH (09:31)
[2022-06-13] MEDS: Clopidogrel 75 MG Tab PO SCH (09:31)
[2022-06-13] MEDS: Potassium Chloride 10 MEQ Tab.ER PO SCH (09:31)
[2022-06-13] MEDS: Fluticasone/Salmeterol 250-50 MCG Inhalation Powder 14/Diskus INH SCH ×2 (09:32→21:38)
[2022-06-13] MEDS: Amiodarone 200 MG Tab PO SCH (09:32)
[2022-06-13] MEDS ORDERED: Furosemide 40 MG/4 ML VIAL IVPUSH ONE (10:15)
[2022-06-13] MEDS: Doxycycline 100 MG in Sodium Chloride 0.9% 100 ML IV SCH ×2 (12:03→21:37)
[2022-06-13] MEDS: Warfarin Sliding Scale PO SCH (15:00)
[2022-06-13] MEDS ORDERED: cefTRIAXone 1 GM in Sodium Chloride 0.9% 50 ML IV SCH (16:15)
[2022-06-13] MEDS: Rosuvastatin 10 MG Tab PO SCH (21:36)
[2022-06-13] MEDS: Gabapentin 100 MG Cap PO SCH (21:36)
[2022-06-14] MEDS: Albuterol 8 GM Inhaler INH PRN (00:30)
[2022-06-14] MEDS: Levothyroxine 25 MCG Tab PO SCH (06:43)
[2022-06-14] MEDS: Metoprolol Tartrate 25 MG Tab PO SCH ×3 (06:43→21:38)
[2022-06-14] MEDS: Midodrine 5 MG Tab PO SCH ×3 (06:43→17:41)
[2022-06-14 07:31] LABS: CARBON DIOXIDE,CO2 18.2 mmol/L (21.0-32.0); POTASSIUM,K 3.4 mmol/L (3.5-5.1)
[2022-06-14] MEDS ORDERED: Furosemide 40 MG/4 ML VIAL IVPUSH ONE (08:54)
[2022-06-14] MEDS: Fluticasone/Salmeterol 250-50 MCG Inhalation Powder 14/Diskus INH SCH ×2 (09:07→21:42)
[2022-06-14] MEDS: Amiodarone 200 MG Tab PO SCH (09:08)
[2022-06-14] MEDS: Tamsulosin 0.4 MG Cap.ER PO SCH (09:08)
[2022-06-14] MEDS: Potassium Chloride 10 MEQ Tab.ER PO SCH (09:09)
[2022-06-14] MEDS: Clopidogrel 75 MG Tab PO SCH (09:09)
[2022-06-14] MEDS: Pantoprazole 40 MG Tab.CR PO SCH (09:10)
[2022-06-14] MEDS: Venlafaxine 37.5 MG Cap.ER PO SCH (09:11)
[2022-06-14] MEDS: Potassium Chloride 20 MEQ Tab.ER PO ONE ×2 (09:51→10:03)
[2022-06-14] MEDS: Potassium Chloride 10 MEQ Tab.ER PO ONE ×2 (10:03→11:10)
[2022-06-14] MEDS: Doxycycline 100 MG in Sodium Chloride 0.9% 100 ML IV SCH ×2 (10:22→21:38)
[2022-06-14] MEDS ORDERED: Cefepime 2 GM in Premix Bag 1 BAG IV SCH (12:00)
[2022-06-14] MEDS: Cefepime 2 GM in Sodium Chloride 0.9% 50 ML IV SCH (12:05)
[2022-06-14] MEDS: Warfarin Sliding Scale PO SCH (14:04)
[2022-06-14] MEDS: VANCOmycin 1.5 GM/300 ML 1.5 GM in Premix Bag 1 BAG IV SCH (17:41)
[2022-06-14] MEDS: Gabapentin 100 MG Cap PO SCH (21:38)
[2022-06-14] MEDS: Rosuvastatin 10 MG Tab PO SCH (21:38)
[2022-06-15] MEDS: Cefepime 2 GM in Sodium Chloride 0.9% 50 ML IV SCH ×2 (00:34→11:56)
[2022-06-15 06:16] LABS: CARBON DIOXIDE,CO2 18.6 mmol/L (21.0-32.0); POTASSIUM,K 3.3 mmol/L (3.5-5.1)
[2022-06-15] MEDS: Midodrine 5 MG Tab PO SCH ×3 (06:45→17:24)
[2022-06-15] MEDS: Metoprolol Tartrate 25 MG Tab PO SCH ×3 (06:45→21:26)
[2022-06-15] MEDS: Levothyroxine 25 MCG Tab PO SCH (06:47)
[2022-06-15] MEDS ORDERED: Potassium Chloride 20 MEQ Tab.ER PO ONE (09:37)
[2022-06-15] MEDS: Pantoprazole 40 MG Tab.CR PO SCH (09:45)
[2022-06-15] MEDS: Potassium Chloride 10 MEQ Tab.ER PO SCH (09:45)
[2022-06-15] MEDS: Venlafaxine 37.5 MG Cap.ER PO SCH (09:45)
[2022-06-15] MEDS: Fluticasone/Salmeterol 250-50 MCG Inhalation Powder 14/Diskus INH SCH ×2 (09:46→20:27)
[2022-06-15] MEDS: Clopidogrel 75 MG Tab PO SCH (09:46)
[2022-06-15] MEDS: Tamsulosin 0.4 MG Cap.ER PO SCH (09:46)
[2022-06-15] MEDS: Amiodarone 200 MG Tab PO SCH (09:46)
[2022-06-15] MEDS: Doxycycline 100 MG in Sodium Chloride 0.9% 100 ML IV SCH ×2 (10:15→21:31)
[2022-06-15] MEDS ORDERED: Potassium Chloride 10 MEQ Tab.ER PO ONE (11:30)
[2022-06-15] MEDS ORDERED: Furosemide 40 MG/4 ML VIAL IVPUSH ONE (13:41)
[2022-06-15] MEDS: Albuterol 8 GM Inhaler INH PRN (14:08)
[2022-06-15] MEDS ORDERED: Warfarin 2.5 MG, Warfarin 2 MG PO ONE ×2 (14:15)
[2022-06-15] MEDS: Warfarin Sliding Scale PO SCH (14:20)
[2022-06-15] MEDS ORDERED: ALPRAZolam 0.5 MG Tab PO ONE (17:10)
[2022-06-15] MEDS: Furosemide 40 MG/4 ML VIAL IV SCH (17:26)
[2022-06-15] MEDS: VANCOmycin 1.5 GM/300 ML 1.5 GM in Premix Bag 1 BAG IV SCH (17:31)
[2022-06-15] MEDS ORDERED: Cefepime 2 GM in Premix Bag 1 BAG IV SCH (18:45)
[2022-06-15] MEDS ORDERED: Albuterol/Ipratropium 3.0-0.5 MG/3 ML Neb Soln NEB PRN (19:07)
[2022-06-15 20:21] LABS: CARBON DIOXIDE,CO2 20.1 mmol/L (21.0-32.0); POTASSIUM,K 4.1 mmol/L (3.5-5.1)
[2022-06-15] MEDS: Gabapentin 100 MG Cap PO SCH (20:28)
[2022-06-15] MEDS: Albuterol 0.083% 2.5 MG/3 ML Neb Soln NEB PRN (20:28)
[2022-06-15] MEDS: Rosuvastatin 10 MG Tab PO SCH (20:28)
[2022-06-16] MEDS: Ipratropium 0.02% 0.5 MG/2.5 ML Neb Soln NEB SCH ×5 (00:19→23:00)
[2022-06-16] MEDS: Metoprolol Tartrate 25 MG Tab PO SCH ×4 (06:36→23:28)
[2022-06-16] MEDS: Midodrine 5 MG Tab PO SCH ×3 (06:37→18:14)
[2022-06-16 06:40] LABS: CARBON DIOXIDE,CO2 19.6 mmol/L (21.0-32.0); POTASSIUM,K 3.3 mmol/L (3.5-5.1)
[2022-06-16] MEDS: Levothyroxine 25 MCG Tab PO SCH (06:40)
[2022-06-16] MEDS: Albuterol 0.083% 2.5 MG/3 ML Neb Soln NEB PRN ×2 (07:56→23:00)
[2022-06-16] MEDS: Furosemide 40 MG/4 ML VIAL IV SCH ×2 (07:58→14:38)
[2022-06-16] MEDS: Tamsulosin 0.4 MG Cap.ER PO SCH (09:22)
[2022-06-16] MEDS: Pantoprazole 40 MG Tab.CR PO SCH (09:22)
[2022-06-16] MEDS: Potassium Chloride 10 MEQ Tab.ER PO SCH (09:22)
[2022-06-16] MEDS: Amiodarone 200 MG Tab PO SCH (09:23)
[2022-06-16] MEDS: Clopidogrel 75 MG Tab PO SCH (09:23)
[2022-06-16] MEDS: Venlafaxine 37.5 MG Cap.ER PO SCH (09:23)
[2022-06-16] MEDS: Fluticasone/Salmeterol 250-50 MCG Inhalation Powder 14/Diskus INH SCH ×2 (09:23→20:01)
[2022-06-16] MEDS: Cefepime 2 GM in Sodium Chloride 0.9% 50 ML IV SCH ×2 (09:24→20:24)
[2022-06-16] MEDS: Doxycycline 100 MG in Sodium Chloride 0.9% 100 ML IV SCH ×2 (10:40→23:00)
[2022-06-16] MEDS ORDERED: Potassium Chloride 20 MEQ in Premix Bag 1 BAG IV ONE (10:45)
[2022-06-16] MEDS ORDERED: Sodium Chloride 0.9% 250 ML IV ONE (11:00)
[2022-06-16] MEDS: POTASSIUM CHLORIDE PO ONE ×2 (12:10→16:13)
[2022-06-16] MEDS ORDERED: Potassium Chloride 10 MEQ Tab.ER PO ONE (14:00)
[2022-06-16] MEDS ORDERED: Warfarin 2 MG Tab PO ONE (14:00)
[2022-06-16] MEDS: Warfarin Sliding Scale PO SCH (15:29)
[2022-06-16] MEDS: VANCOmycin 1.5 GM/300 ML 1.5 GM in Premix Bag 1 BAG IV SCH (18:14)
[2022-06-16] MEDS: Rosuvastatin 10 MG Tab PO SCH (20:01)
[2022-06-16] MEDS: Gabapentin 100 MG Cap PO SCH (20:01)
[2022-06-16] MEDS ORDERED: Norepinephrine Bit/D5W Premix 250 ML IV SCH (21:30)
[2022-06-17 06:21] LABS: CARBON DIOXIDE,CO2 17.9 mmol/L (21.0-32.0); POTASSIUM,K 3.4 mmol/L (3.5-5.1)
[2022-06-17] MEDS: Ipratropium 0.02% 0.5 MG/2.5 ML Neb Soln NEB SCH ×2 (06:36→11:36)
[2022-06-17] MEDS: Levothyroxine 25 MCG Tab PO SCH (06:36)
[2022-06-17] MEDS: Metoprolol Tartrate 25 MG Tab PO SCH ×2 (06:36→15:14)
[2022-06-17] MEDS: Midodrine 5 MG Tab PO SCH ×2 (06:37→11:53)
[2022-06-17] MEDS: Furosemide 40 MG/4 ML VIAL IV SCH ×2 (09:27→15:14)
[2022-06-17] MEDS: Tamsulosin 0.4 MG Cap.ER PO SCH (09:28)
[2022-06-17] MEDS: Pantoprazole 40 MG Tab.CR PO SCH (09:28)
[2022-06-17] MEDS: Potassium Chloride 10 MEQ Tab.ER PO SCH (09:28)
[2022-06-17] MEDS: Clopidogrel 75 MG Tab PO SCH (09:28)
[2022-06-17] MEDS: Venlafaxine 37.5 MG Cap.ER PO SCH (09:28)
[2022-06-17] MEDS: Cefepime 2 GM in Sodium Chloride 0.9% 50 ML IV SCH (09:29)
[2022-06-17] MEDS: Amiodarone 200 MG Tab PO SCH (09:29)
[2022-06-17] MEDS: Fluticasone/Salmeterol 250-50 MCG Inhalation Powder 14/Diskus INH SCH (09:30)
[2022-06-17] MEDS ORDERED: POTASSIUM CHLORIDE PO ONE (09:46)
[2022-06-17] MEDS ORDERED: Potassium Chloride 20 MEQ in Premix Bag 1 BAG IV ONE (10:15)
[2022-06-17] MEDS ORDERED: Sodium Chloride 0.9% 250 ML IV ONE (10:15)
[2022-06-17] MEDS: Doxycycline 100 MG in Sodium Chloride 0.9% 100 ML IV SCH (10:40)
[2022-06-17] MEDS ORDERED: Potassium Chloride 10 MEQ Tab.ER PO ONE (12:15)
[2022-06-17 15:14] VITALS: BP 128/63; PULSE 111
[2022-06-17] MEDS: Warfarin Sliding Scale PO SCH (15:14)
== END 2022-06-17 15:45 | DRG 193 ==
LOC: MW.ED 12:48 → EEVIPCON 16:45 → MW.MS 16:45 → OBSVTOIN 06-13 10:03 → MW.MS 06-13 18:26 → MW.ICU 06-15 14:48
PROVIDERS: ADMIT Pediatrics; ATTEND Pediatrics
DX: I48.91 Unspecified atrial fibrillation (principal); J18.9 Pneumonia, unspecified organism; J90 Pleural effusion, not elsewhere classified; I50.23 Acute on chronic systolic (congestive) heart failure; J96.01 Acute respiratory failure with hypoxia; I48.21 Permanent atrial fibrillation; I13.0 Hypertensive heart and chronic kidney disease with heart failure and stage 1 through stage 4 chronic kidney disease, or unspecified chronic kidney disease; R04.2 Hemoptysis; K21.9 Gastro-esophageal reflux disease without esophagitis; I25.10 Atherosclerotic heart disease of native coronary artery without angina pectoris; I25.2 Old myocardial infarction; J43.9 Emphysema, unspecified; I44.7 Left bundle-branch block, unspecified; E78.00 Pure hypercholesterolemia, unspecified; E66.9 Obesity, unspecified; F32.A Depression, unspecified; G62.9 Polyneuropathy, unspecified; Z96.653 Presence of artificial knee joint, bilateral; Z96.641 Presence of right artificial hip joint; Z96.611 Presence of right artificial shoulder joint; Z20.822 Contact with and (suspected) exposure to COVID-19; I50.9 Heart failure, unspecified; N18.31 Chronic kidney disease, stage 3a; E87.6 Hypokalemia; I25.5 Ischemic cardiomyopathy; I95.1 Orthostatic hypotension; G47.33 Obstructive sleep apnea (adult) (pediatric); D63.1 Anemia in chronic kidney disease; G89.29 Other chronic pain; M54.9 Dorsalgia, unspecified; I35.0 Nonrheumatic aortic (valve) stenosis; Z98.1 Arthrodesis status; Z79.899 Other long term (current) drug therapy; Z90.89 Acquired absence of other organs; Z98.890 Other specified postprocedural states; Z95.1 Presence of aortocoronary bypass graft; Z86.711 Personal history of pulmonary embolism; Z79.01 Long term (current) use of anticoagulants
CPT/HCPCS: 0240U; 36415; 36600; 51702; 71045; 71045-26; 71046; 71046-26; 71250; 71250-26; 80048; 80053; 80202; 81001; 82803; 82947; 83605; 83735; 83880; 84100; 84443; 84484; 85025; 85610; 86140; 87040; 87070; 87205; 93005; 93010; 93306; 94640; 94660; 96365; 96374; 96375; 96376; 97110-GP; 97161-GP; 97530-GP; 99223; 99231; 99232; 99233; 99239; 99285; 99285-25; A9270-GY; G0378; J0692; J0696; J1940; J3370; J3480; J3490; J7050; J7620-GY